=== PATIENT | female | born 1955 | race Caucasian/White ===

== ENCOUNTER → 2016-11-15 | Outpatient (CLI) | payer MEDICARE, OTHER ==
[~2016-11-15] MED LIST: REGADENOSON 0.4 MG/5 ML DISP.SYRIN. IV ONE
--- NOTE | 2016-11-15 10:05 | CARD ---
APPROVED REPORT EXAM: Two-dimensional and M-mode echocardiogram with Doppler and color Doppler. Other Information Quality : Good INDICATION Chest Pain 2D DIMENSIONS RVDd2.3 (2.9-3.5cm)Left Atrium(2D)3.4 (1.6-4.0cm) IVSd1.1 (0.7-1.1cm)Aortic Root(2D)2.4 (2.0-3.7cm) LVDd3.7 (3.9-5.9cm)LVOT Diameter1.7 (1.8-2.4cm) PWd1.2 (0.7-1.1cm)LVDs2.1 (2.5-4.0cm) FS (%) 30.0 %SV42.7 ml LVEF(%)60.0 (>50%) Aortic Valve AoV Peak Qamar.355.1cm/sAoV VTI74.2cm AO Peak GR.50.4mmHgLVOT Peak Qamar.83.8cm/s AO Mean GR.25mmHgAVA (VMAX)0.52cm2 NITIN (VTI)1.17uk1OT P 1/2 [id number] Mitral Valve MV E Hqglymyz70.5cm/sMV DECEL [id number] MV A Kuhbgljs112.9cm/sE/A Ratio0.9 Pulmonary Vein S1 Fozughea01.7cm/sD2 Tnahctot52.3cm/s PVa [id number] LEFT VENTRICLE The left ventricle is normal size. There is mild concentric left ventricular hypertrophy. The left ve ntricular systolic function is normal and the ejection fraction is within normal range. The Ejection Fraction is 55-60%. There is normal LV segmental wall motion. Transmitral Doppler flow pattern is Gra de I-abnormal relaxation pattern. RIGHT VENTRICLE The right ventricle is normal size. The right ventricular systolic function is normal. ATRIA The left atrium size is normal. The right atrium size is normal. The interatrial septum is intact wit h no evidence for an atrial septal defect or patent foramen ovale as noted on 2-D or Doppler imaging. AORTIC VALVE The aortic valve is calcified and displays decreased opening. Doppler and Color Flow revealed mild ao rtic regurgitation. Calculated aortic valve area is 1.0 cm2 with maximum pressure gradient of 50 mmHg and mean pressure gradient of 25 mmHg. Doppler and color-flow analysis revealed moderate aortic sten osis. DI 0.28 MITRAL VALVE The mitral valve is calcified but opens well. Mitral annular calcification is mild. There is no evide nce of mitral valve prolapse. There is no mitral valve stenosis. Doppler and Color-flow revealed trac e mitral regurgitation. TRICUSPID VALVE The tricuspid valve is normal in structure and function. Doppler and Color Flow revealed no tricuspid valve regurgitation noted. There is no tricuspid valve stenosis. PULMONIC VALVE Doppler and Color Flow revealed no pulmonic valvular regurgitation. There is no pulmonic valvular charlene nosis. GREAT VESSELS The aortic root is normal in size. The ascending aorta is normal in size. The IVC is normal in size a nd collapses >50% with inspiration. PERICARDIAL EFFUSION There is no evidence of significant pericardial effusion. Critical Notification Critical Value: No <Conclusion> The left ventricular systolic function is normal and the ejection fraction is within normal range. Th e Ejection Fraction is 55-60%. There is normal LV segmental wall motion. Calculated aortic valve area is 1.0 cm2 with maximum pressure gradient of 50 mmHg and mean pressure g radient of 25 mmHg. Doppler and color-flow analysis revealed moderate aortic stenosis. DI 0.28
--- NOTE | 2016-11-15 12:06 | RAD ---
APPROVED REPORT Test Type: Pharmacological Stress Nurse/Tech: Mana Engle R.N. Test Indications: atypical chest pain w/dyspnea Cardiac History: murmur,cad w/stent,htn Medications: See Electronic Medical Record Medical History: See Electronic Medical Record Resting ECG: SR Resting Heart Rate: 65 bpm Resting Blood Pressure: 134/66mmHg Pretest Chest Pain: No chest pain Nurse/Tech Notes S1S2, murmur, lungs CTA Consent: The procedure was explained to the patient in lay terms. Informed consent was witnessed. Agustín eout was entered into [employer]. History and Stress Test performed by MARTIN Dinh Pharm. Details Pharmacologic stress testing was performed using 0.4mg per 5ml of regadenoson given intravenously ove r 7-10 seconds. Stress Symptoms slight dizziness at first and then chest tightness along lower breast area, scale 3/10 with some soa feeling. this decrease to a 1/10 by the end of recovery time POST EXERCISE Reason for Termination: Infusion complete Target HR: 105 Max Blood Pressure: 147/70mmHg Blood Pressure response to exercise: Normal blood pressure response during stress. Heart Rate response to exercise: wnl Chest Pain: Yes. see above note Arrhythmia: No. ST Change: Yes. minnimal decreases in leads II,III,AVF, V4 INTERPRETATION Stress EKG Conclusion: Abnormal EKG with inferior horizontal ST segment depression at stress. Imaging Protocol IMAGE PROTOCOL: Rest Tc-99m/stress Tc-99m 1 day Rest: Stress: Viability: Radiopharm.Tc99m [id number] Sestamibi Eyhe17eUu 37mCi Duration 15min. 10min. Img Date 11/15/2016 11/15/2016 Inj-Img [id number]. 60min. Rest Admin Site:IV - Left AntecubitalAdministrator:RT Asha (Karla)(N) Stress Admin Site: IV - Left AntecubitalAdministrator: MARTIN Dinh STRESS DATA End Diast. Vol.52.0mlAv. Heart Rate72.0bpm End Syst. Vol.15.0mlCO Index BSA0.0L/min Myocardial Mass98.0gEject. Naxxyrhp00.0% Stress Rates Pk. Fill Rate2.91EDV/secLVtime Pk. Fill 215.00msec Pk. Empty Rate3.89ESV/secLVtime Pk. Pweuq286.76msec 07/27 Pk. Fill0.78EDV/sec Stress Scores Regional WT2.00Summed WT6.00 Regional WM0.00Summed WM10.00 LV Perfusion There is a moderate sized, mild to moderate in intensity, mid to distal anterior/anteroseptal perfusi on defect on stress images that is fully reversible suggestive of impaired perfusion reserve. Wall Motion Normal LV function. EF > 70% LV Perf. Quant 17 Seg. SSS4.00 17 Seg. SRS0.00 17 Seg. SDS4.00 Stress Defect Extent (% LAD)16.90Rest Defect Extent (% LAD)0.00Rev. Defect Extent (% LAD)15.00 Stress Defect Extent (% LCX) 0.00Rest Defect Extent (% LCX)0.00Rev. Defect Extent (% LCX)0.00 Stress Defect Extent (% RCA)0.00Rest Defect Extent (% RCA)0.00Rev. Defect Extent (% RCA)0.00 Stress Defect Extent (% HECTOR)7.00Rest Defect Extent (% HECTOR)0.00Rev. Defect Extent (% HECTOR)6.10 Other Information Quality:Good Risk Assessment: Moderate Risk Conclusion 1. Mildly positive EKG changes with inferior ST segment depression. 2. Mid to distal anterior wall/septal reversible defect. 3. Normal LVEF at 70% 4. Moderate risk study
== END | disposition home or self-care (01) ==
LOC: NM 08:08
PROVIDERS: ATTEND Internal Medicine Cardiovascular Disease
DX: I08.0 Rheumatic disorders of both mitral and aortic valves (principal)
CPT/HCPCS: 78452; 93017; 93306; 96374; 96375; 96376; A9500; J2785

== ENCOUNTER 2017-04-05 06:30 | Inpatient (IN) | payer MEDICARE, OTHER ==
[2017-04-05] VITALS (14 sets, daily range): BP systolic 97–160; BP diastolic 30–79
[~2017-04-05] VITALS: Ht 162.6 cm; Wt 59.1 kg
[2017-04-05] MEDS ORDERED: HEPARIN for ARTERIAL LINE 1,500 ML ONE (07:09)
[2017-04-05] MEDS ORDERED: LIDOCAINE 2% 20 ML VIAL. ONE (07:09)
[2017-04-05] MEDS ORDERED: IODIXANOL 320 MG/ML 100 ML VIAL. ONE ×2 (07:09→09:07)
[2017-04-05] MEDS ORDERED: MAGN400C PO (07:26)
[2017-04-05] MEDS ORDERED: TACR1CAP4 PO (07:26)
[2017-04-05] MEDS ORDERED: MYCO500T PO (07:26)
[2017-04-05] MEDS ORDERED: CHOL10003 PO (07:26)
[2017-04-05] MEDS ORDERED: AMLO5TAB4 PO (07:26)
[2017-04-05] MEDS ORDERED: LOSA50TA2 PO (07:26)
[2017-04-05] MEDS ORDERED: GABA-586 PO (07:26)
[2017-04-05] MEDS ORDERED: OXYC-327 PO (07:26)
[2017-04-05] MEDS ORDERED: CYAN10005 PO (07:26)
[2017-04-05] MEDS ORDERED: TEMA15CA PO (07:26)
[2017-04-05] MEDS ORDERED: LINA145C PO (07:26)
[2017-04-05 07:42] LABS: HEMATOCRIT 38.5 % (36.0-47.0); HEMOGLOBIN 12.6 g/dL (12.0-15.5); RED BLOOD COUNT 4.09 x10^6/uL (3.50-5.40); RED CELL DISTRIBUTION WIDTH 14.2 % (11.5-14.5)
[2017-04-05 07:46] LABS: CALCIUM 9.4 mg/dL (8.5-10.1); GFR 56.4; POTASSIUM 3.9 mmol/L (3.5-5.1)
[2017-04-05] MEDS ORDERED: VERAPAMIL 5 MG/2 ML VIAL. ONE (08:07)
[2017-04-05] MEDS ORDERED: MIDAZOLAM HCL/PF 2 MG/2 ML VIAL. ONE ×2 (08:07→08:35)
[2017-04-05] MEDS ORDERED: HEPARIN for IV BOLUS 10,000 UNIT/10 ML VIAL. ONE (08:07)
[2017-04-05] MEDS ORDERED: fentaNYL PF VIAL 100 MCG/2 ML VIAL ONE ×2 (08:07→08:35)
[2017-04-05 08:08] LABS: PROTHROMBIN TIME PATIENT 12.6 SEC (11.7-14.0)
[2017-04-05] MEDS ORDERED: NITROGLYCERIN 200 MCG/2 ML SYRINGE FOR CATH/VASC LAB. ONE ×2 (08:09→09:44)
[2017-04-05] MEDS ORDERED: NITROGLYCERIN SUBLINGUAL 0.4 MG BOTTLE OF 25. SL ONE (09:06)
[2017-04-05] MEDS ORDERED: NITROGLYCERIN PREMIX 250 ML IV ONE (09:31)
[2017-04-05] MEDS ORDERED: MIDAZOLAM HCL/PF 2 MG/2 ML VIAL. IV ONE (09:45)
[2017-04-05] MEDS ORDERED: VERAPAMIL 5 MG/2 ML VIAL. IART ONE (09:45)
[2017-04-05] MEDS ORDERED: HEPARIN for IV BOLUS 10,000 UNIT/10 ML VIAL. IART ONE (09:45)
[2017-04-05] MEDS ORDERED: NITROGLYCERIN SUBLINGUAL 0.4 MG BOTTLE OF 25. SL PRN (09:45)
[2017-04-05] MEDS ORDERED: fentaNYL PF VIAL 100 MCG/2 ML VIAL IV ONE (09:45)
[2017-04-05] MEDS ORDERED: NITROGLYCERIN 200 MCG/2 ML SYRINGE FOR CATH/VASC LAB. IART ONE ×2 (09:45)
[2017-04-05] MEDS ORDERED: HEPARIN for IV BOLUS 10,000 UNIT/10 ML VIAL. IV ONE (09:45)
[2017-04-05] MEDS ORDERED: IODIXANOL 320 MG/ML 100 ML VIAL. IART ONE (09:45)
[2017-04-05] MEDS ORDERED: LIDOCAINE 2% 20 ML VIAL. IJ ONE (09:45)
[2017-04-05] MEDS ORDERED: CONTRAST GIVEN MC PRN ×2 (10:00)
[2017-04-05] MEDS ORDERED: HEPARIN 25,000UTS/500ML PREMIX 500 ML IV ONE (10:03)
[2017-04-05] MEDS ORDERED: HEPARIN 25,000UTS/500ML PREMIX 500 ML IV PRN ×2 (10:15→12:00)
[2017-04-05] MEDS: NITROGLYCERIN PREMIX 250 ML IV PRN ×2 (10:19→13:20)
--- NOTE | 2017-04-05 11:49 | PDOC2 ---
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 Her anginal episodes have recently become more frequent and intense. She also reports associated shortness of breath. Her coronary angiography today demonstrated a very tight 95 % distal left main disease extending into the LAD and left circumflex bifurcation. The patient has preserved LV function. Of note she was found to have moderate aortic valve stenosis with a valve area of 1 cm and a mean gradient of 25. I was consulted to consider the patient for CABG and AVR Past Medical History Cardiovascular: CAD, HTN, Aortic stenosis Pulmonary: COPD Heme/Onc: Cancer (non-Hodgkin's lymphoma status post chemotherapy) Hepatobiliary: No pertinent hx Psych: No pertinent hx Musculoskeletal: low back pain, Weakness, Other (multiple right lower extremity fractures) Infectious disease: No pertinent hx ENT: No pertinent hx Renal/: Other (kidney transplant) Endocrine: Other (pancreas transplant) Past Surgical History Past Surgical History: Total hip replacement, Total knee replacement (all ORIF right femur, kidney pancreas transplant) Family History Family History: No Significant Social History ALCOHOL: none Drugs: None Lives: with Family Current Medications Current Medications Current Medications Heparin Sodium/ Sodium Chloride 1,500 ml @ As Directed STK-MED ONCE .ROUTE ; Start 04/05/17 at 07:09; Stop 04/05/17 at 07:10; Status DC Lidocaine HCl 20 ml STK-MED ONCE .ROUTE ; Start 04/05/17 at 07:09; Stop at 07:10; Status DC Iodixanol (Visipaque 320) 100 ml STK-MED ONCE .ROUTE ; Start 04/05/17 at 07:09; Stop 04/05/17 at 07:10; Status DC Verapamil HCl (Verapamil) 5 mg STK-MED ONCE .ROUTE ; Start 04/05/17 at 08:07; Stop 04/05/17 at 08:08; Status DC Heparin Sodium (Porcine) (Heparin Sodium) 10,000 unit STK-MED ONCE .ROUTE ; Start 04/05/17 at 08:07; Stop 04/05/17 at 08:08; Status DC Fentanyl Citrate (Fentanyl 2ml Vial) 100 mcg STK-MED ONCE .ROUTE ; Start at 08:07; Stop 04/05/17 at 08:08; Status DC Midazolam HCl (Versed) 2 mg STK-MED ONCE .ROUTE ; Start 04/05/17 at 08:07; Stop 04/05/17 at 08:08; Status DC Nitroglycerin (Nitroglycerin) 200 mcg STK-MED ONCE .ROUTE ; Start 04/05/17 at 08 :09; Stop 04/05/17 at 08:10; Status DC Fentanyl Citrate (Fentanyl 2ml Vial) 100 mcg STK-MED ONCE .ROUTE ; Start at 08:35; Stop 04/05/17 at 08:36; Status DC Midazolam HCl (Versed) 2 mg STK-MED ONCE .ROUTE ; Start 04/05/17 at 08:35; Stop 04/05/17 at 08:36; Status DC Nitroglycerin (Nitrostat) 0.4 mg STK-MED ONCE SL ; Start 04/05/17 at 09:06; Stop 04/05/17 at 09:07; Status DC Iodixanol (Visipaque 320) 100 ml STK-MED ONCE .ROUTE ; Start 04/05/17 at 09:07; Stop 04/05/17 at 09:08; Status DC Dopamine HCl/ Dextrose 250 ml @ As Directed STK-MED ONCE IV ; Start 04/05/17 at 09:13; Stop 04/05/17 at 09:14; Status DC Nitroglycerin/ Dextrose 250 ml @ As Directed STK-MED ONCE IV ; Start 04/05/17 at 09:31; Stop 04/05/17 at 09:32; Status DC Nitroglycerin (Nitroglycerin) 200 mcg STK-MED ONCE .ROUTE ; Start 04/05/17 at 09 :44; Stop 04/05/17 at 09:45; Status DC Nitroglycerin (Nitroglycerin) 200 mcg 1X ONCE IART Last administered on 10:21; Start 04/05/17 at 09:45; Stop 04/05/17 at 09:52; Status DC Verapamil HCl (Verapamil) 2.5 mg 1X ONCE IART Last administered on 04/05/17 10:22; Start 04/05/17 at 09:45; Stop 04/05/17 at 09:52; Status DC Heparin Sodium (Porcine) (Heparin Sodium) 2,500 unit 1X ONCE IART Last administered on 04/05/17 10:23; Start 04/05/17 at 09:45; Stop 04/05/17 at 09:52 ; Status DC Heparin Sodium/ Sodium Chloride 1,000 unit 1X ONCE IART Last administered on 10:20; Start 04/05/17 at 09:45; Stop 04/05/17 at 09:52; Status DC Heparin Sodium/ Sodium Chloride 1,000 unit 1X ONCE IART Last administered on 10:20; Start 04/05/17 at 09:45; Stop 04/05/17 at 09:52; Status DC Midazolam HCl (Versed) 4 mg 1X ONCE IV Last administered on 04/05/17 10:23; Start 04/05/17 at 09:45; Stop 04/05/17 at 09:52; Status DC Fentanyl Citrate (Fentanyl 2ml Vial) 200 mcg 1X ONCE IV Last administered on 10:23; Start 04/05/17 at 09:45; Stop 04/05/17 at 09:53; Status DC Iodixanol (Visipaque 320) 100 ml 1X ONCE IART Last administered on 04/05/17 10:21; Start 04/05/17 at 09:45; Stop 04/05/17 at 09:52; Status DC Heparin Sodium (Porcine) (Heparin Sodium) 4,000 unit 1X ONCE IV Last administered on 04/05/17 10:24; Start 04/05/17 at 09:45; Stop 04/05/17 at 09:52 ; Status DC Lidocaine HCl 20 ml 1X ONCE IJ Last administered on 04/05/17 10:21; Start 07/10 at 09:45; Stop 04/05/17 at 09:52; Status DC Nitroglycerin (Nitrostat) 0.4 mg PRN Q5MIN PRN SL CHEST PAIN Last administered on 04/05/17 10:24; Start 04/05/17 at 09:45; Stop 04/06/17 at 09:44 Nitroglycerin/ Dextrose 250 ml @ 0 mls/hr CONT PRN IV SEE I/O RECORD Last administered on 04/05/17 10:19; Start 04/05/17 at 09:45; Stop 04/06/17 at 09:44 Nitroglycerin (Nitroglycerin) 100 mcg 1X ONCE IART Last administered on 10:22; Start 04/05/17 at 09:45; Stop 04/05/17 at 09:52; Status DC Info (Do NOT chart on this entry -- for MONITORING) 1 each PRN DAILY PRN MC SEE COMMENTS; Start 04/05/17 at 10:00; Stop 04/07/17 at 09:59 Info (Do NOT chart on this entry -- for MONITORING) 1 each PRN DAILY PRN MC SEE COMMENTS; Start 04/05/17 at 10:00; Stop 04/07/17 at 09:59 Heparin Sodium/ Dextrose 500 ml @ As Directed STK-MED ONCE IV ; Start 04/05/17 at 10:03; Stop 04/05/17 at 10:04; Status DC Heparin Sodium/ Dextrose 500 ml @ 0 mls/hr CONT PRN IV SEE I/O RECORD Last administered on 04/05/17 10:19; Start 04/05/17 at 10:15; Stop 04/06/17 at 10:14 Heparin Sodium/ Sodium Chloride 1,000 unit 1X ONCE IV Last administered on 10:20; Start 04/05/17 at 10:15; Stop 04/05/17 at 10:16; Status DC Active Scripts Active Reported Percocet 7.5-325 Mg Tablet (Oxycodone/Acetaminophen) 1 Each Tablet 1 Tab PO PRN Q6HRS PRN Temazepam 15 Mg Capsule 15 Mg PO HS PRN Vitamin D3 (Cholecalciferol (Vitamin D3)) 1,000 Unit Tablet 500 Unit PO DAILY Vitamin B-12 (Cyanocobalamin (Vitamin B-12)) 1,000 Mcg Tablet 500 Mcg PO DAILY Magnesium (Magnesium Oxide) 400 Mg Capsule 1,000 Mg PO DAILY Linzess (Linaclotide) 145 Mcg Capsule 145 Mcg PO Gabapentin 300 Mg Capsule 300 Mg PO TID Cozaar (Losartan Potassium) 50 Mg Tablet 50 Mg PO HS Norvasc (Amlodipine Besylate) 5 Mg Tablet 5 Mg PO HS Prograf (Tacrolimus) 1 Mg Capsule 2 Cap PO BID Cellcept (Mycophenolate Mofetil) 500 Mg Tablet 1 Tab PO BID Allergies Allergies: Coded Allergies: No Known Drug Allergies (Unverified , 11/15/16) ROS General: No: Chills, Night Sweats, Fatigue, Malaise, Appetite PSYCHOLOGICAL ROS: No: Anxiety, Behavioral Disorder, Concentration difficultie , Decreased libido, Depression, Disorientation, Hallucinations, Hostility, Irritablity, Memory difficulties, Mood Swings, Obsessive thoughts, Physical abuse, Sexual abuse, Sleep disturbances, Suicidal ideation Eyes: No Blurry vision, No Decreased vision, No Double vision, No Dry eyes, No Excessive tearing, No Eye Pain, No Itchy Eyes, No Loss of vision, No Photophobia , No Scotomata, No Uses contacts, No Uses glasses HEENT: No: Heacaches, Visual Changes, Hearing change, Nasal congestion, Nasal discharge, Oral lesions, Sinus pain, Sore Throat, Epistaxis, Sneezing, Snoring, Tinnitus, Vertigo, Vocal changes Hematological and Lymphatic: No: Bleeding Problems, Blood Clots, Blood Transfusions, Brusing, Night Sweats, Pallor, Swollen Lymph Nodes ENDOCRINE: No: Breast Changes, Galactorrhea, Hair Pattern Changes, Hot Flashes , Malaise/lethargy, Mood Swings, Palpitations, Polydipsia/polyuria, Skin Changes , Temperature Intolerance, Unexpected Weight Changes Breast: No New/Changing Breast Lumps, No Nipple changes, No Nipple discharge Respiratory: No: Cough, Hemoptysis, Orthopnea, Pleuritic Pain, Shortness of breath, SOB with excertion, Sputum Changes, Stridor, Tachypnea, Wheezing Cardiovascular: No Chest Pain, No Palpitations, No Orthopnea, No Paroxysmal Noc. Dyspnea, No Edema, No Lt Headedness Gastrointestinal: No Nausea, No Vomiting, No Abdominal Pain, No Diarrhea, No Constipation, No Melena, No Hematochezia Genitourinary: No Dysuria, No Frequency, No Incontinence, No Hematuria, No Retention, No Discharge, No Urgency, No Pain, No Flank Pain Musculoskeletal: No Gait Disturbance, No Joint Pain, No Joint Stiffness, No Joint Swelling, No Muscle Pain, No Muscular Weakness, No Pain In:, No Swelling In: Neurological: No Behavorial Changes, No Bowel/Bladder ControlChng, No Confusion , No Dizziness, No Gait Disturbance, No Headaches, No Impaired Coord/balance, No Memory Loss, No Numbness/Tingling, No Seizures, No Speech Problems, No Tremors, No Visual Changes, No Weakness Skin: No Dry Skin, No Eczema, No Hair Changes, No Lumps, No Mole Changes, No Mottling, No Nail Changes, No Pruritus, No Rash, No Skin Lesion Changes, No Acne Physical Exam General: Alert, Oriented X3, No acute distress HEENT: Atraumatic, PERRLA Lungs: Clear to auscultation, Normal air movement Heart: Regular rate, Normal S1, Normal S2, Other (systolic murmur) Abdomen: Soft, No tenderness Extremities: No edema Skin: No significant lesion Neuro: Normal speech, Sensation intact, Cranial nerves 3-12 NL Psych/Mental Status: Mental status NL MUSCULOSKELETAL: Abnormal exam of right (lower extremity) Vitals VITALS Vital Signs Date Time Temp Pulse Resp B/P (MAP) Pulse Ox O2 Delivery O2 Flow Rate FiO2 04/05/17 10:24 107/61 04/05/17 10:23 14 100 Nasal Cannula 4.0 04/05/17 10:22 89 04/05/17 08:17 97.8 97.8 Labs Labs Laboratory Tests Test 04/05/17 07:20 04/05/17 09:35 04/05/17 10:02 White Blood Count 4.0 x10^3/uL (4.0-11.0) Red Blood Count 4.09 x10^6/uL (3.50-5.40) Hemoglobin 12.6 g/dL (12.0-15.5) Hematocrit 38.5 % (36.0-47.0) Mean Corpuscular Volume 94 fL (79-100) Mean Corpuscular Hemoglobin 31 pg (25-35) Mean Corpuscular Hemoglobin Concent 33 g/dL (31-37) Red Cell Distribution Width 14.2 % (11.5-14.5) Platelet Count 246 x10^3/uL (140-400) Prothrombin Time 12.6 SEC (11.7-14.0) Prothromb Time International Ratio 1.0 (0.8-1.1) Activated Partial Thromboplast Time 34 SEC (24-38) Sodium Level 139 mmol/L (136-145) Potassium Level 3.9 mmol/L (3.5-5.1) Chloride Level 102 mmol/L (98-107) Carbon Dioxide Level 30 mmol/L (21-32) Anion Gap 7 (6-14) Blood Urea Nitrogen 14 mg/dL (7-20) Creatinine 1.0 mg/dL (0.6-1.0) Estimated GFR (Cockcroft-Gault) 56.4 Glucose Level 100 mg/dL (70-99) Calcium Level 9.4 mg/dL (8.5-10.1) Activated Clotting Time 225 sec (92-181) 217 sec (92-181) Laboratory Tests Test 04/05/17 07:20 04/05/17 09:35 04/05/17 10:02 White Blood Count 4.0 x10^3/uL (4.0-11.0) Red Blood Count 4.09 x10^6/uL (3.50-5.40) Hemoglobin 12.6 g/dL (12.0-15.5) Hematocrit 38.5 % (36.0-47.0) Mean Corpuscular Volume 94 fL (79-100) Mean Corpuscular Hemoglobin 31 pg (25-35) Mean Corpuscular Hemoglobin Concent 33 g/dL (31-37) Red Cell Distribution Width 14.2 % (11.5-14.5) Platelet Count 246 x10^3/uL (140-400) Prothrombin Time 12.6 SEC (11.7-14.0) Prothromb Time International Ratio 1.0 (0.8-1.1) Activated Partial Thromboplast Time 34 SEC (24-38) Sodium Level 139 mmol/L (136-145) Potassium Level 3.9 mmol/L (3.5-5.1) Chloride Level 102 mmol/L (98-107) Carbon Dioxide Level 30 mmol/L (21-32) Anion Gap 7 (6-14) Blood Urea Nitrogen 14 mg/dL (7-20) Creatinine 1.0 mg/dL (0.6-1.0) Estimated GFR (Cockcroft-Gault) 56.4 Glucose Level 100 mg/dL (70-99) Calcium Level 9.4 mg/dL (8.5-10.1) Activated Clotting Time 225 sec (92-181) 217 sec (92-181) Assessment/Plan Assessment/Plan 62-year-old female with unstable angina who underwent coronary angiography today which demonstrated a very tight 95% distal left main disease extending into the LAD and left circumflex bifurcation. She also has a patent mid RCA stent. The patient has preserved LV function. Of note, she has moderate aortic valve stenosis with a valve area of 1 cm and a mean gradient of 25. In addition to a CABG, the patient would need to have an aortic valve replacement for her moderate aortic stenosis. Overall she would be a very high risk surgical candidate for CABG/AVR, considering that she is nonambulatory and wheelchair bound, blind, on immunosuppressants and with a history of non-Hodgkin 's lymphoma. She would certainly have a complex postoperative recovery. I had a long discussion with the patient and her daughter. I explained the benefits and risks of undergoing CABG/AVR. They would prefer to undergo PCI. I think this would be a very reasonable approach. Would recommend PCI to the distal left main with Impella. Considering that her aortic valve stenosis is moderate, if she undergoes PCI, her aortic stenosis would not have to be addressed at this stage. Down the road, if the aortic stenosis become severe, she can undergo TAVR. RADHIKA HERNANDEZ MD Apr 05, 2017 11:49
[2017-04-05] MEDS ORDERED: fentaNYL PF VIAL 100 MCG/2 ML VIAL IV PRN (12:00)
[2017-04-05] MEDS ORDERED: HEPARIN for IV BOLUS 10,000 UNIT/10 ML VIAL. IV PRN (12:00)
[2017-04-05] MEDS ORDERED: PRASUGREL 10 MG TABLET. PO ONE (12:15)
[2017-04-05] MEDS ORDERED: LINACLOTIDE 145 MCG CAPSULE. PO PRN (12:45)
[2017-04-05] MEDS: fentaNYL PF VIAL 100 MCG/2 ML VIAL IV PRN ×2 (13:17→20:44)
[2017-04-05] MEDS: IV NORMAL SALINE 1000ML BAG 1,000 ML IV SCH ×2 (13:30→21:47)
[2017-04-05] MEDS ORDERED: GABA600T2 PO (13:38)
[2017-04-05] MEDS ORDERED: GABAPENTIN 300 MG CAPSULE. PO SCH (14:00)
[2017-04-05] MEDS: CYCLOBENZAPRINE 10 MG TABLET. PO PRN ×2 (15:25→22:29)
[2017-04-05] MEDS: oxyCODONE/APAP 7.5/325 1 TAB TABLET PO PRN ×2 (15:26→22:28)
[2017-04-05] MEDS: HYDROmorphone 2 MG/ML VIAL IVP PRN ×2 (16:26→19:46)
--- NOTE | 2017-04-05 16:45 | CARD ---
APPROVED REPORT EXAM: Two-dimensional and M-mode echocardiogram with Doppler and color Doppler. Other Information Quality : Fair INDICATION Aortic Valve Disease 2D DIMENSIONS LVOT Diameter2.0 (1.8-2.4cm) Aortic Valve AoV Peak Qamar.336.1cm/sAoV VTI72.3cm AO Peak GR.45.2mmHgLVOT VTI 19.58cm AO Mean GR.30mmHgAVA (VTI)0.80cm2 LEFT VENTRICLE The left ventricle is normal size. There is mild concentric left ventricular hypertrophy. The left ve ntricle is hyperdynamic.EF 70% There is normal LV segmental wall motion. RIGHT VENTRICLE The right ventricle is normal size. The right ventricular systolic function is normal. ATRIA The left atrium is mildly dilated. AORTIC VALVE The aortic valve is not well visualized. Doppler and Color Flow revealed no significant aortic regurg itation. Calculated aortic valve area is 0.8 cm2 with maximum pressure gradient of 45 mmHg and mean p ressure gradient of 30 mmHg. Doppler and color-flow analysis revealed severe aortic stenosis. GREAT VESSELS Not evaluated PERICARDIAL EFFUSION There is no evidence of significant pericardial effusion. Critical Notification Critical Value: No <Conclusion> Calculated aortic valve area is 0.8 cm2 with maximum pressure gradient of 45 mmHg and mean pressure g radient of 30 mmHg. Doppler and color-flow analysis revealed severe aortic stenosis. The left ventricle is hyperdynamic.EF 70% Limited TTE only for LV function and NITIN.
[2017-04-05] MEDS: FAMOTIDINE 20 MG TABLET. PO SCH (17:39)
--- NOTE | 2017-04-05 17:43 | CARD ---
APPROVED REPORT Procedure(s) performed: Sedation Time : 146 min HISTORY The patient is a 62 year-old female with a history of : previous CHF, hypertension, dyslipidemia. INDICATION The indication(s) include : positive stress test, unstable angina , dyspnea. PROCEDURE NARRATIVE After explaining the risks and benefits of the procedure and alternatives, informed consent was obta ined. (See nursing notes for medications administered). The patient was brought electively to the [facility] catheterization lab. A timeout was performed confirming the patient's name, date of , proc edure, and site of procedure. All necessary personnel were wearing the appropriate protective equipm ent and radiation monitor devices. The right wrist was sterilely prepped and draped in the usual fa shion. The right wrist was infiltrated with 1 mL of 2% lidocaine for subcutaneous anesthesia. A 6 F rench Terumo glide sheath was inserted into the right radial artery but there was difficulty due to s pasm and only the distal 1/3 of the sheath was able to be advanced. Right and left coronary angiogra phy was performed using a 6Fr TIG 4.0 catheter, AL2 and JL3.5 catheters. Despite multiple efforts due to small radial artery size and LM angulation, engagement and angiography was difficulty. During tra nsitioning from a radial access to a femoral access the patient experienced transient ST elevation wi th significant chest pain and emergent access was then obtained. Due to suspicion for distal LM disea se, groin access via the RCFA was obtained using the modified seldinger technique. A 6Fr sheath was i nserted. Repeat angigoraphy was then performed with a JL4 catheter. HEMODYNAMICS: Aortic pressure: 126/82 LEFT VENTRICULOGRAM: Not performed due to known normal EF. CORONARY ANGIOGRAPHY: LM is a large caliber vessel with a distal heavily calcified bifurcation lesion upper proximally 95% involving the ostium of the LAD and circumflex LAD is a large caliber vessel with an ostial 90% stenosis and a proximal 60% stenosis with heavy calc ification. The mid to distal vessel is free of significant disease. D1 is a small caliber vessel with normal angiographic apeparance. LCx is a moderate caliber non-dominant vessel with ostial 90% stenosis. The distal vessel is free of significant disease. OM1 is a moderate caliber vessel with normal angiographic appearance. RCA is a large caliber dominant vessel with an ostial/proximal 40% stenosis, a mid patent stent and m ild diffuse irregularities of up to 30%. RPDA and RPL are small caliber vessels with mild diffuse irregularities of up to 30%. Due to the findings of critical distal left main disease and transient ST changes with angina emergen t cardiac surgery consultation was obtained and the patient was started on a heparin drip along with nitroglycerin drip and the ST segments stabilized and the patient symptoms improved. A emergent consu ltation was also obtained with the patient's family with regards to her goals of care and treatment o ptions. Next, a 5 [place] crossover catheter was used to access the left common iliac artery and limit ed angiography was performed to assess patency of the left renal graft as well as size for possible i njured balloon pump placement. Under angiographic and fluoroscopic guidance a 6 [place] sheath was int roduced in the left common femoral artery via the modified Seldinger technique under 2% lidocaine loc al anesthesia. Subsequently this was upsized to an 8 [place] sheath. Next, the right common femoral ar terial sheath was upsized to an 8 [place] sheath and an injured balloon pump was placed through the ri t femoral artery (7.5 [place] 40 mL balloon). The balloon pump counterpulsation was started at 1-1 a nd the patient was stabilized. The patient was transferred to the ICU in stable condition for consideration of cardiac surgery consu ltation. The right radial sheath was removed and a Terumo radial band was applied with 12 mm of air. The bilateral groin sheaths were sutured to the skin. Conclusion 1. Critical distal left main disease with transient ST elevations in the [place]. 2. Successful insertion of a 7.5 [place], 40 mm intra-aortic balloon pump via the right common femoral artery. Recommendations The patient was referred for cardiac surgery consultation. She was evaluated by our cardiac surgery s er and felt to be high risk due to her debilitated state and wheelchair bound situation as well a s high risk for sternal wound infection in light of her immunosuppressive therapy. Her case was also discussed with another cardiac surgeon who concurred the initial assessment of prohibitive risk for c ardiac surgery. A discussion was held with the patient's family and the patient about the risks and b enefits of various approaches including PCI of the left main with a left ventricular assist device as well as high risk bypass surgery in light of her moderate aortic stenosis with valve replacement. Th e patient wishes to have left main stenting performed and after stabilization overnight we will plan for high risk PCI tomorrow. Risks including , stroke, renal failure and bleeding were discussed with the patient. She understands and wishes to proceed.
[2017-04-05] MEDS ORDERED: IV NORMAL SALINE 500ML BAG 500 ML IV ONE ×2 (19:30→20:30)
[2017-04-05 20:12] LABS: CREATININE 1.1 mg/dL (0.6-1.0); GFR 50.5
[2017-04-05] MEDS: TACROLIMUS 1 MG CAPSULE PO SCH (20:51)
[2017-04-05] MEDS: GABAPENTIN 300 MG CAPSULE. PO SCH (20:52)
[2017-04-05] MEDS: MYCOPHENOLATE MOFETIL 250 MG CAPSULE. PO SCH (20:52)
[2017-04-05] MEDS: TEMAZEPAM 15 MG CAPSULE PO PRN (22:28)
[2017-04-06] VITALS (27 sets, daily range): BP systolic 89–166; BP diastolic 34–87
[2017-04-06] MEDS: HYDROmorphone 2 MG/ML VIAL IVP PRN (00:15)
[2017-04-06] MEDS: fentaNYL PF VIAL 100 MCG/2 ML VIAL IV PRN ×2 (00:15→05:52)
[2017-04-06] MEDS: ALPRAZolam 0.25 MG TABLET PO PRN (00:23)
[2017-04-06 05:32] LABS: HEMATOCRIT 26.5 % (36.0-47.0); RED BLOOD COUNT 2.87 x10^6/uL (3.50-5.40); RED CELL DISTRIBUTION WIDTH 13.5 % (11.5-14.5)
--- NOTE | 2017-04-06 05:45 | ACF ---
Admission Forms Criteria INTENSIVE CARE UNIT ADMISSION Intensive Care Admission Guidelines ( [place]/check or initial the applicable condition/criteria) Admission may be indicated when need is demonstrated by 1 or more of the following:(1)(2)(3)(4)(5)(6)(7)(8)(9)(10)(11) I. Vital sign abnormalities, including 1 or more of the following: a) Systolic arterial pressure less than 90 mm Hg, or 20 mm Hg below patient's usual pressure in adult or child 10 years or older b) Systolic arterial blood pressure less than 70 mm Hg in infant (1 month to 1 year of age), or less than the sum of 70 mm Hg plus twice the patient's age in child 2 to 10 years of age(12) c) Diastolic arterial pressure greater than 120 mm Hg d) Mean arterial pressure less than 70 mm Hg in adult[A] e) Mean arterial pressure less than the sum of 40 mm Hg plus 1.5 times patient' s age in child or adolescent[A](12) f) Pulse less than 40 or greater than 140 beats per minute in adult, or in adolescent 16 years or older g) Pulse less than 90 or greater than 160 beats per minute in infant younger than 1 year(7) h) Pulse less than 70 or greater than 150 beats per minute in child 1 to 15 years of age(7) i) Respiratory rate greater than 35 or less than 8 breaths per minute in adult II. Laboratory findings (new), including 1 or more of the following(13)(14)(15)( 16)(17)(18)(19)(20): a) Saturation of arterial oxygen less than 90% or partial pressure of oxygen less than 60 mm Hg (8.0 kPa) despite oxygen supplementation b) Rising partial pressure of carbon dioxide with acute or uncompensated respiratory acidosis c) Arterial pH less than 7.2 or greater than 7.65 d) Serum sodium less than 110 mEq/L (mmol/L) or greater than 160 mEq/L (mmol/L) e) Serum sodium less than 125 mEq/L (mmol/L) with Altered mental status, seizure , or respiratory arrest f) Serum sodium more than 145 mEq/L (mmol/L) with Altered mental status, seizure , or severe dehydration requiring large volume fluid resuscitation g) Serum potassium less than 2 mEq/L (mmol/L) or greater than 7 mEq/L (mmol/L) h) Serum potassium less than 2.5 mEq/L (mmol/L) with severe clinical or electrocardiogram manifestations (eg, paralysis, cardiac arrhythmia, delayed depolarization, flat T waves, or U waves) i) Serum potassium greater than 6 mEq/L (mmol/L) with electrocardiogram changes of hyperkalemia (eg, peaked T waves, widened QRS, cardiac arrhythmia) j) Serum calcium greater than 14 mg/dL (3.5 mmol/L)(19) k) Serum calcium greater than 12 mg/dL (3.0 mmol/L) with Altered mental status, severe volume depletion requiring large volume IV fluid resuscitation, Hypotension, significant arrhythmia, heart block, or digitalis toxicity(19) l) Serum phosphorus less than 1 mg/dL (0.32 mmol/L) m) Toxic drug level or poisoning causing or likely to cause neurologic abnormalities or Hemodynamic instability n) Less severe laboratory abnormalities contributing to 1 or more of the following: i. Seizure ii. Altered mental status iii. Muscle weakness or severe spasms iv. Arrhythmias v. Hemodynamic instability vi. Other significant clinical manifestations III. Electrocardiogram (or cardiac monitoring) findings, including 1 or more of the following: a) Inherently unstable or life-threatening arrhythmia (eg, sustained ventricular tachycardia, ventricular fibrillation, asystole) b) Arrhythmia causing Hypotension (eg, Bradycardia, Tachycardia ) c) Complete heart block causing Hypotension d) Other findings indicative of need for intensive care (eg, acute cardiac ischemia, myocardial infarction) IV. Physical findings, including 1 or more of the following: a) Threatened airway b) Altered mental status that is severe or persistent c) Repeated or prolonged seizures d) New-onset anuria (urine output less than 0.1 mL/kg/hour over 4 hours) e) Cyanosis (new) f) Cardiac tamponade g) Status post respiratory or cardiac arrest h) Severe frias (eg, partial thickness frias over more than 10% of body surface , third-degree frias) i) Findings consistent with abdominal emergency (eg, peritoneal signs) V. Imaging findings, such as dissecting aneurysm or ruptured viscus . Specific intervention or monitoring needed, as indicated by 1 or more of the following: a) New need for assisted ventilation, invasive or noninvasive(20) b) New need for intubation (eg, to protect airway) c) New tracheostomy (less than 48 hours old) d) Hourly vital signs or neurologic checks e) Pulmonary artery line monitoring needed f) Continuous arterial line monitoring needed g) Continuous IV vasoactive drugs h) Continuous IV antiarrhythmics i) Large volume IV fluid resuscitation (eg, greater than 6 L per day) j) Large or rapid transfusion needs (eg, more than 6 units within 24 hours) k) High-risk IV treatment, such as thrombolysis, hypertonic saline, or mannitol infusion l) Rapid desensitization for high-risk hypersensitivity reaction to required medication (eg, penicillin)(21)(22) m) Acute cardiac pacing n) Intra-aortic balloon pump o) Ventricular assist device p) Extracorporeal membrane oxygenation device q) Pericardiocentesis r) Hemodialysis in unstable patient s) Continuous renal replacement therapy (eg, continuous venovenous hemodialysis ) t) Continuous fluid removal via hemofiltration (eg, continuous venovenous hemofiltration) u) Peritoneal dialysis initiation v) Emergency bronchoscopic therapy (eg, for hemoptysis) w) Emergency endoscopic therapy for bleeding x) Balloon tamponade for variceal bleeding y) Intracranial pressure monitoring or tissue oxygen monitoring z) Ventriculostomy monitoring aa) Treatment of ongoing seizures bb) Induced hypothermia or coma cc) Ongoing frequent testing and treatment for acute conditions, including 1 or more of the following: i. Correction of severe metabolic acidosis or alkalosis ii. Frequent glucose checks (ie, more frequent than performable at lower level of care) iii. Severe fluid overload iv. Cerebral edema v. Monitoring or suctioning for respiratory insufficiency or acidosis vi. Monitoring for active bleeding dd) Other need for treatment or monitoring not available outside the ICU VII. Systemic conditions, including 1 or more of the following: a) Severe electrolyte or metabolic disturbance causing or likely to cause 1 or more of the following(13)(16)(17)(18)(19): i. Life-threatening cardiac dysrhythmia ii. Respiratory insufficiency iii. Altered mental status iv. Seizures v. Hemodynamic instability vi. Muscular weakness b) Environmental injuries such as Hypothermia, hyperthermia, electrical injuries , or near drowning(27)(28)(29)(30)(31) c) Anaphylaxis with respiratory compromise, Hypotension, or other end organ dysfunction(32)(33) d) Confirmed or suspected malignant hyperthermia as evidenced by exposure to volatile anesthetic agent or succinylcholine and 1 or more of the following(27)(34): i. Hypermetabolism as evidenced by inappropriately increased CO2 production, O2 consumption, or acute mixed metabolic and respiratory acidosis ii. Unexplained Tachycardia iii. Cardiac tachyarrhythmias, ectopic ventricular beats or ventricular bigemini iv. [place] spasm v. Muscle rigidity vi. Rapid increase in core body temperature vii. Acute rise in serum potassium, creatine kinase, or myoglobin e) Neuroleptic malignant syndrome as evidenced by exposure to neuroleptic drug ( eg, phenothiazine, butyrophenone) or dopamine depleting drug (eg, alpha-methyltyrosine),or withdrawal of dopaminergic agent (eg, L-dopa, amantadine) and 1 or more of the following(27)(34): i. Muscle rigidity ii. Hyperthermia iii. Altered mental status iv. Hemodynamic instability v. Acute rise in creatine kinase f) Serotonin syndrome (serotonin toxicity) as evidenced by exposure to medication(s) that increases level of serotonin in MI[employer]CHIT[employer] DEVELOPER (eg, some antidepressants, opioids, stimulants, triptans) and 1 or more of the following: i. Significant neurologic finding (eg, agitation, hypomania, hallucinations, Altered mental status ) ii. Significant autonomic nervous system-related finding (eg, sweating, hyperthermia, tachycardia, vomiting) iii. Significant musculoskeletal findings (eg, myoclonus, hyperreflexia, tremor) g) Severe alcohol withdrawal with 1 or more of the following(36)(37)(38): i. Hemodynamic instability ii. Cardiac arrhythmias of immediate concern iii. Uncontrolled seizures iv. Respiratory depression with need for, or high likelihood of requiring, mechanical ventilation v. Need for anesthetic agent to control agitation (eg, dexmedetomidine, propofol ) vi. Delirium tremens as evidenced by ALL of the following: a) Cessation of, or reduction in, heavy and prolonged alcohol use b) Delirium c) 2 or more of the following symptoms: i. Autonomic hyperactivity ii. Tremor iii. Nausea or vomiting iv. Hallucinations v. Increased anxiety vi. Psychomotor agitation vii. Generalized tonic-clonic seizures VIII. Cardiology diagnoses or procedures, including 1 or more of the following( 39)(40)(41)(42)(43): a) Chest pain with 1 or more of the following: i. Hemodynamic instability ii. Suspicion of diagnoses needing ICU care (eg, aortic dissection) iii. New unstable or symptomatic arrhythmia or ECG finding (eg, ventricular tachycardia, ventricular fibrillation, advanced heart block) iv. Syncope or near-syncope v. Pulmonary edema thought to be due to ischemia vi. New or worsening mitral regurgitation murmur, S3, or rales b) Acute OR or unstable angina with complications as indicated by 1 or more of the following: i. Persistent chest pain ii. Hemodynamic instability iii. New unstable or symptomatic arrhythmia or ECG finding (eg, ventricular tachycardia, ventricular fibrillation, advanced heart block) iv. Syncope or near-syncope v. Pulmonary edema thought to be due to ischemia vi. New or worsening mitral regurgitation murmur, S3, or rales vii. New-onset bundle branch block viii.Hemorrhagic complication (eg, intracranial or access site bleed following thrombolysis) c) Complication of cardiac ablation, indicated by 1 or more of the following(45) (46): i. Pericardial tamponade ii. Hemodynamic instability iii. Thromboembolic stroke iv. Aortic or mitral valve injury v. Vascular injuries vi. Esophageal perforation vii. Severe arrhythmia viii. Air embolism ix. Other severe complication d) Ablation with need for post-procedure invasive hemodynamic monitoring(45) e) Hemodynamic instability due to cardiac cause (eg, valve disease, arrhythmia, ischemia, conduction abnormality) (47)(48)(49) f) Hypertensive emergency, with need for 1 or more of the following(38)(39): i. IV antihypertensive therapy ii. Invasive hemodynamic monitoring (eg, arterial line) g) Infective endocarditis with 1 or more of the following(50)(51): i. Hemodynamic instability ii. Valvular dysfunction with congestive heart failure iii. Need for inotropic agent iv. Severe arrhythmia v. Intracranial mycotic aneurysm vi. Hemorrhagic stroke vii. Altered mental status that is severe or persistent viii. Acute respiratory failure ix. Requirement for frequent hemodynamic measurements x. Acute renal failure xi. Acute ischemic end organ damage (eg, small bowel infarction) xii. Need for acute surgical valve repair or replacement xiii. Severe pulmonary edema (eg, severe mitral regurgitation) h) Pericardial tamponade i) Severe heart failure, indicated by 1 or more of the following(40): i. Hemodynamic instability ii. Respiratory failure iii. Severe arrhythmias iv. Evidence of cardiac ischemia j) Myocarditis, with 1 or more of the following(52)(53)(54)(55): i. Hemodynamic instability ii. Respiratory failure iii. Severe arrhythmias iv. Need for cardiac assist device (eg, left ventricular assist device or extracorporeal membrane oxygenator) k) Status post cardiac arrest(56) [X] IX. Cardiovascular Surgery diagnoses or procedures, including 1 or more of the following (57)(58)(59): a) Acute aortic dissection b) Aortic surgery for 1 or more of the following: i. Thoracic aneurysm ii. Abdominal aneurysm with 1 or more of the following (60): A. Emergency repair B. Severe cardiopulmonary disease C. Dialysis-dependent renal failure D. Need for IV blood pressure control E. Need for ongoing ventilatory support F. Abdominal compartment syndrome G. Perioperative complications, including 1 or more of the followin. Hemodynamic instability 2. Cardiac ischemia or arrhythmia 3. Hypothermia 4. Blood transfusion greater than 3 L 5. Acute lower extremity ischemia 6. Ischemic colitis iii. Aortic coarctation operative excision or repair iv. Aortofemoral or aortoiliac bypass with 1 or more of the following: A. Continued intubation and mechanical ventilation B. Hemodynamic instability C. Need for IV blood pressure control D. Severe cardiopulmonary disease [X] c) Cardiac surgery (eg, CABG, valve replacement) d) Carotid endarterectomy or stent placement with 1 or more of the following: i. Blood pressure less than 100/60 mm Hg or greater than 160/90 mm Hg despite 4 hours of postanesthetic management ii. Need for IV blood pressure control iii. New or progressive neurologic defect iv. Chest pain v. Continued intubation vi. Heart failure vii. Airway compromise by hematoma or vocal cord paralysis e) Heart transplant f) Infrainguinal peripheral vascular surgery with 1 or more of the following: i. Hemodynamic instability ii. Acute complications such as persistent chest pain or respiratory distress iii. Requirement for IV antiarrhythmic or vasoactive agent iv. Requirement for pulmonary artery catheter v. Severe hypertension despite 6 hours of recovery room management g) Complications of any cardiovascular surgery requiring ICU intervention as indicated by 1 or more of the following(61) i. Hemodynamic instability ii. OR with complications (eg, severe arrhythmia, hypotension) iii. Excessive bleeding or severe coagulopathy iv. Respiratory failure v. Renal failure vi. Airway instability or obstruction vii. Neurologic deterioration viii. Infection with likelihood of sepsis syndrome or significant fluid shifts X. Endocrinology diagnoses or procedures, including 1 or more of the following: a) Adrenal crisis with Hemodynamic instability(18)(62)(63) b) Pheochromocytoma with 1 or more of the following(62): i. Hypertensive crisis ii. Postoperative for 24 hours after resection of pheochromocytoma iii. Postoperative Hemodynamic instability iv. Need for IV vasoactive therapy v. Need for invasive arterial or central venous pressure monitoring vi. Organ ischemia c) Diabetic hyperosmolar state with Altered mental status that is severe or persistent(64) d) Diabetic ketoacidosis with 1 or more of the following (64)(65)(66)(67): i. Serum pH less than 7.10 or bicarbonate level less than 10 mEq/L (mmol/L) ii. Rapidly changing electrolytes iii. Significant hypokalemia (eg.ECG changes) iv. Hypotension v. Requirement for large-volume fluid resuscitation vi. Requirement for intravenous insulin administration vii. Requirement for nursing care (eg, glucose checks) beyond capabilities of lower levels of care. viii. Respiratory insufficiency ix. Life-threatening cardiac dysrhythmias x. Altered mental status that is severe or persistent xi. Severe precipitating condition such as sepsis, stroke, or acute OR xii. Child at increased risk of cerebral edema (eg, age younger than 5 years, high BUN) xiii. Child with clinical signs of cerebral edema (eg, headache, Altered mental status, cranial nerve palsy, papilledema, rising blood pressure with slowing heart rate) e) Severe hypoglycemia requiring continuous glucose infusion with frequent adjustment (eg, in response to glucose checks) or glucagon administration (18) f) Hyperthyroidism associated with thyroid storm (also known as thyrotoxic crisis)(18)(68) g) Myxedema with severe precipitating factor (eg, sepsis, myocardial infarction , stroke), or life-threatening neurologic, pulmonary, cardiovascular, electrolyte, or renal sequelae(69) h) Diabetes insipidus that cannot be controlled rapidly (eg, with medication) ( 70) XI. Gastroenterology diagnoses or procedures, including 1 or more of the following;(71) a) Acute diverticulitis with 1 or more of the following(72)(73): i. Active GI bleeding (eg, transfusion requirement greater than 2 units of packed red cells, known coagulopathy) ii. Hemodynamic instability iii. Vital sign abnormality due to infection (eg, peritonitis) b) Esophageal or gastric perforation(74) c) Severe caustic esophageal or gastric injury(75)(76) d) Liver disease complications with 1 or more of the following(77)(78)(79)(80): i. Severe hepatic encephalopathy (eg, stage 3 (somnolent) or higher) ii. Type 1 hepatorenal syndrome iii. Other cirrhosis-associated causes of renal failure (eg, severe hypovolemia , acute tubular necrosis, abdominal compartment syndrome) iv. Hemodynamic instability v. Respiratory insufficiency due to severe ascites vi. Severe electrolyte abnormalities vii. Vital sign abnormality due to infection (eg, bacterial peritonitis) e) Fulminant hepatic failure when aggressive intervention or transplant is anticipated(81) f) Gallbladder or bile duct inflammation (eg, cholangitis or cholecystitis) with 1 or more of the following(82): i. Hemodynamic instability ii. End organ failure (eg, worsening renal function) g) Gastrointestinal hemorrhage (upper or lower) with 1 or more of the following( 72)(83)(84): i. Active ongoing bleeding ii. Transfusion requirement greater than 2 units of packed red cells iii. Bleeding ulcer, visible blood vessel, bleeding (or recently bleeding) esophageal varices seen on endoscopy iv. Hypotension v. Syncope vi. Coagulopathy vii. Hepatic cirrhosis viii. Altered mental status ix. Unstable comorbid condition or end organ dysfunction x. Ischemia due to poor perfusion xi. Need for invasive (eg, pulmonary-artery catheter) hemodynamic monitoring (eg , for patients with severe heart failure or valvular disease) xii. Excessive hematemesis requiring intubation for airway protection h) Severe pancreatitis indicated by 1 or more of the following(85)(86)(87): i. Requirement for aggressive fluid resuscitation ii. Severe electrolyte abnormality iii. Hypotension iv. Persistent tachycardia greater than 120 beats per minute v. Patient at high risk of rapid deterioration, including 1 or more of the following: A. Calculated [place] II score greater than 8 B. Age older than 55 years C. BMI greater than 30 D. Greater than 30% pancreatic necrosis on CT scan E. Admission hematocrit greater than 47% (0.47) vi. Organ failure as indicated by 1 or more of the following: A. Serum creatinine greater than 1.9 mg/dL (168 micromoles/L) B. Urine output less than 50 mL/hour C. Requirement for mechanical ventilation D. Arterial partial pressure of oxygen less than 60 mm Hg (8.0 kPa) despite supplemental oxygen E. PiO2/FiO2 ratio less than 300 vii. Expanding pseudocyst viii. Infected pancreas ix. Need for pain control (eg, IV opioids) not performable at lower level of care x. Pleural effusion xi. Encephalopathy xii. Severe active comorbidities (eg, liver disease) XII. General Surgery diagnoses or procedures, including 1 or more of the following(8)(61)(88): a) Acute abdominal catastrophe (eg, ischemic bowel, perforated viscus, abdominal compartment syndrome) b) Complications of any surgery requiring ICU intervention as indicated by 1 or more of the following: i. Hemodynamic instability ii. OR with complications (eg, severe arrhythmia, Hypotension ) iii. Excessive bleeding or severe coagulopathy iv. Respiratory failure or insufficiency v. Renal failure vi. Airway instability or obstruction vii. Neurologic deterioration viii. Infection with Hypotension or significant fluid shifts c) Multiple trauma with complicating features as indicated by 1 or more of the following(89)(90): i. Serious injury involving more than one organ or system ii. Single organ injury requiring critical care intervention or monitoring (eg, invasive hemodynamic monitoring, frequent vital signs or neurologic checks) iii. Impending acute respiratory failure due to lung contusion, unstable chest wall, aspiration, hemorrhage, tension or open pneumothorax, or fat embolism iv. Facial or neck injury threatening airway patency v. Cardiac contusion vi. Pericardial effusion vii. Bronchial tear viii. Hemodynamic instability ix. Rhabdomyolysis requiring large volume IV fluid resuscitation x. Other significant complicating feature d) Organ transplant(91)(92)(93) e) Esophagectomy(71) f) Pancreatectomy (eg, Whipple procedure) g) Preoperative or postoperative patients requiring ICU intervention, such as hemodynamic optimization, pulmonary artery monitoring, mechanical ventilation, or extensive nursing care h) Obesity surgery patient with 1 or more of the following(94): i. ICU management needs for comorbid conditions (eg, airway issues due to severe sleep apnea) ii. Failed postoperative extubation iii. Intraoperative complications (eg, perforated viscus, bleeding) XIII. Head and Neck Surgery diagnoses or procedures, including 1 or more of the following (95)(96): a) Complications of any surgery requiring ICU intervention as indicated by 1 or more of the following: i. Hemodynamic instability ii. OR with complications (eg, severe arrhythmia, Hypotension ) iii. Excessive bleeding or severe coagulopathy iv. Respiratory failure or insufficiency v. Renal failure vi. Airway instability or obstruction vii. Neurologic deterioration viii. Infection with likelihood of sepsis syndrome or significant fluid shifts b) Preoperative or postoperative patient requiring ICU intervention, such as pulmonary artery monitoring, mechanical ventilation, or extensive nursing care c) Life-threatening infection of head and neck, including 1 or more of the following(81)(82)(83): i. Preston's angina (submandibular and lingual cellulitis) ii. Lateral or posterior pharyngeal space infection iii. Peritonsillar abscess iv. Lemierre syndrome (Fusobacterium oropharyngeal infection complicated by jugular vein septic thrombophlebitis) v. Acute epiglottitis vi. Other upper airway infection causing or threatening airway compromise d) Airway or hemodynamic compromise that persists after 3 hours of observation in postanesthesia care unit following nasal, palate (eg, uvulopalatopharyngoplasty or palatoplasty), or tongue surgery for sleep apnea e) Symptomatic upper airway compromise (eg, laryngeal edema, mass) f) Other airway-compromising procedure (eg, posterior nasal packing) XIV. Hematology - Oncology diagnoses or procedures, including chemotherapy administration, with 1 or more of the following(100)(101)(102)(103): a) Hemodynamic instability b) Severe sickle cell crisis indicated by 1 or more of the following(104): i. Hemodynamic instability ii. Evidence of MICRO[employer] ARCHIT[employer] DEVELOPER injury (eg, stroke) iii. Altered mental status that is severe or persistent iv. Respiratory distress v. End organ ischemia (eg. intestinal) or failure (eg. renal) vi. Need for treatment (eg, pain control with IV opioids) or monitoring (eg, for renal failure, aplastic crisis) not performable at lower level of care c) Hyperleukocytosis (white blood cell count greater than 100,000/mm3 (100 x109/ L)) and 1 or more of the following: i. Respiratory manifestations (eg, dyspnea, Hypoxemia, acute respiratory distress syndrome) ii. Neurologic manifestations (eg, focal deficit, Altered mental status, seizure ) iii. Cardiac ischemia iv. Other end organ dysfunction (eg, acute kidney injury, visual disturbances) d) Superior vena cava or superior mediastinal syndrome and 1 or more of the following: i. Hemodynamic instability ii. Respiratory symptoms (eg, dyspnea, Tachypnea ) iii. Hypotension iv. Known or suspected pericardial effusion v. Known or suspected airway compromise e) Thrombotic microangiopathy syndrome (eg, thrombotic thrombocytopenic purpura , hemolytic uremic syndrome) and 1 or more of the following (105)(106): i. Acute kidney injury indicated by 1 or more of the following: A. 2-fold rise in serum creatinine from baseline B. Reduction of more than 50% in estimated glomerular filtration rate from baseline C. Urine output less than 0.5 mL/kg/hour for 12 hours despite adequate volume status ii. Altered mental status iii. Seizure iv. Active blood loss v. Other end organ dysfunction (eg, acute respiratory distress syndrome, cardiac ischemia) f) Tumor lysis syndrome with 1 or more of the following: i. Acute kidney injury indicated by 1 or more of the following: A. 2-fold rise in serum creatinine from baseline B. Reduction of more than 50% in estimated glomerular filtration rate from baseline C. Urine output less than 0.5 mL/kg/hour for 12 hours despite adequate volume status ii. Severe electrolyte abnormality iii. Cardiac dysrhythmia iv. Seizure XV. Infectious Disease diagnosis, with 1 or more of the following(1)(5(6))(107)( 108): a) Hemodynamic instability b) Requirement for frequent hemodynamic measurements (eg, arterial catheter, pulmonary artery catheter) c) End organ dysfunction (eg, acute kidney injury, acute respiratory distress syndrome) d) Necrotizing soft tissue infection(109) XVI. Nephrology diagnoses or procedures, including acute or acute on chronic renal insufficiency, with 1 or more of the following(110)(111)(112)(113): a) Severe electrolyte or acid-base disorder b) Acute pulmonary edema c) Hypotension d) Hypertensive emergency (eg, encephalopathy, myocardial ischemia) e) Severe hypertension with need for IV vasodilator (eg, nitroprusside) or arterial catheter for blood pressure monitoring f) Underlying critical illness contributing to renal failure (eg, septic shock, hepatorenal syndrome) g) Need for continuous renal replacement therapy h) Pyelonephritis with Hemodynamic instability (5)(107) XVII. Neurology diagnoses or procedures, including 1 or more of the following( 115)(116)(117): a) Intracranial hypertension requiring 1 or more of the following(118): i. Induced barbiturate coma ii. Pharmacologic paralysis or deep sedation and mechanical ventilation iii. Intracranial pressure or cerebral perfusion pressure monitoring iv. IV mannitol or hypertonic saline v. Frequent serum osmolality measurements b) Seizures with 1 or more of the following(119)(120): i. Status epilepticus ii. Severe electrolyte abnormalities causing seizures iii. Airway compromise requiring or likely to require mechanical ventilation c) Progressive acute neurologic dysfunction requiring or likely to require 1 or more of the following: i. Mechanical ventilation ii. Intracranial pressure or cerebral perfusion pressure monitoring d) MI[employer]CH[employer]ELOPER infection (eg, meningitis, encephalitis) 1 or more of the following[C]( 121)(122)(123)(124): i. Hemodynamic instability ii. Altered mental status that is severe or persistent iii. Respiratory insufficiency iv. Elevated intracranial pressure v. Refractory seizures e) Stroke with 1 or more of the following(125)(126)(127)(128): i. Need for observation after thrombolysis ii. Altered mental status iii. Need for mechanical ventilation iv. Elevated intracranial pressure v. Hypertensive emergency vi. High risk of progressive infarction or deterioration based on CT scan or MRI vii. Hemorrhage f) Acute coma g) Acute spinal cord compression (eg, epidural abscess, hematoma, tumor) h) Acute spontaneous intracranial hemorrhage(127)(129)(130) i) Traumatic brain injury with 1 or more of the following(117)(131)(132): i. Altered mental status that is severe or persistent ii. Cerebral edema iii. Cerebral hemorrhage iv. Increased intracranial pressure j) Drug ingestion or toxic exposure with 1 or more of the following(133)(134)( 135): i. Hemodynamic instability ii. Respiratory depression (eg, new partial pressure of carbon dioxide greater than 45 mm Hg (6.0 kPa)) iii. Patient requires or is likely to require mechanical ventilation. iv. Arrhythmia v. Seizures vi. Altered mental status that is severe or persistent vii. Significant risk for acute deterioration (eg, toxic drug level) viii. Drug-induced Hypothermia or hyperthermia(27) ix. Significant or worsening metabolic acidosis x. Severe hypoglycemia requiring glucose infusion with frequent adjustment or glucagon administration xi. Ongoing antidote administration (eg, continuous naloxone infusion, organophosphate toxicity treatment) xii. Emergency intervention need (eg, dialysis, hemoperfusion, restraints) k) Brain with preparation for organ donation XVIII. Neurosurgery diagnoses or procedures, including 1 or more of the following(118)(136)(137): a) Emergency craniotomy for tumor, hematoma, or trauma b) Elective craniotomy for posterior fossa tumor c) Elective craniotomy (supratentorial) for tumor with 1 or more of the following(138): i. Postoperative neurologic deficit or impaired consciousness 6 hours after completion of procedure ii. Systolic blood pressure less than 110 mm Hg or greater than 180 mm Hg despite therapy iii. Extensive operative blood loss iv. High anesthesia risk (eg, [place] [employer] score greater than 3). See [place] [employer]esthesiologists (ASA) Physical Status Classification System. d) Craniotomy for aneurysm with 1 or more of the following: i. Postoperative neurologic deficit or impaired consciousness 6 hours after completion of procedure ii. Preoperative Sepulveda-Wells grade 3 or higher iii. Systolic blood pressure less than 110 mm Hg or greater than 180 mm Hg despite therapy iv. Intracranial pressure monitoring e) Acute spinal cord injury f) Subarachnoid hemorrhage(127) g) Traumatic brain injury with 1 or more of the following(131)(139): i. Altered mental status that is severe or persistent ii. CT scan showing cerebral edema or hemorrhage iii. Intracranial pressure monitoring h) Complications of surgery requiring ICU intervention as indicated by 1 or more of the following(140): i. Hemodynamic instability ii. OR with complications (eg, severe arrhythmia, Hypotension ) iii. Excessive bleeding or severe coagulopathy iv. Respiratory failure or insufficiency v. Renal failure vi. Airway instability or obstruction vii. Neurologic deterioration viii. Infection with Vital sign abnormality i) Preoperative or postoperative patient requiring ICU intervention, such as pulmonary artery monitoring, mechanical ventilation, or extensive nursing care XIX. Obstetrics andGynecology diagnoses or procedures, including 1 or more of the following (141)(142)(143)(144)(145): a) Severe peripartum condition as indicated by 1 or more of the following: i. Eclampsia ii. Hypertensive emergency iii. HELLP (hemolysis, elevated liver enzymes, and low platelet count) syndrome iv. Pulmonary edema (eg, due to cardiomyopathy) v. Severe arrhythmia vi. Respiratory failure vii. Pulmonary embolism viii. Anaphylactoid syndrome of (amniotic fluid embolus) ix. Ovarian hyperstimulation syndrome[C] x. Acute fatty liver of (hepatic failure) xi. Vital sign abnormality due to infection (eg, puerperal sepsis, chorioamnionitis, septic , pneumonia) xii. Complications such as placental abruption or severe hemorrhage xiii. Severe cardiac complication such as coronary or aortic dissection, or acute coronary syndrome b) Ruptured ectopic c) Complications of any surgery requiring ICU intervention as indicated by 1 or more of the following: i. Hemodynamic instability ii. OR with complications (eg, severe arrhythmia, Hypotension ) iii. Excessive bleeding or severe coagulopathy iv. Respiratory failure or insufficiency v. Renal failure vi. Airway instability or obstruction vii. Neurologic deterioration viii. Infection with Vital sign abnormality d) Preoperative or postoperative patient requiring ICU intervention, such as pulmonary artery monitoring, mechanical ventilation, or extensive nursing care XX. Ophthalmology diagnoses or procedures, including 1 or more of the following( 146): a) Complications of any surgery requiring ICU intervention, such as 1 or more of the following: i. Hemodynamic instability ii. OR with complications (eg, severe arrhythmia, Hypotension ) iii. Excessive bleeding or severe coagulopathy iv. Respiratory failure or insufficiency v. Renal failure vi. Airway instability or obstruction vii. Neurologic deterioration viii. Infection with Vital sign abnormality b) Preoperative or postoperative patient requiring ICU intervention, such as pulmonary artery monitoring, mechanical ventilation, or extensive nursing care XXI. Orthopedics diagnoses or procedures, including 1 or more of the following (147)(148): a) Complications of any surgery requiring ICU intervention as indicated by 1 or more of the following: i. Hemodynamic instability ii. OR with complications (eg, severe arrhythmia, Hypotension ) iii. Excessive bleeding or severe coagulopathy iv. Respiratory failure or insufficiency v. Renal failure vi. Airway instability or obstruction vii. Neurologic deterioration viii. Infection with Vital sign abnormality b) Multiple trauma with complicating features as indicated by 1 or more of the following(89)(90(149): i. Serious injury involving more than one organ or system ii. Single organ injury requiring critical care intervention or monitoring (eg, invasive hemodynamic monitoring, frequent vital signs or neurologic checks) iii. Impending acute respiratory failure due to lung contusion, unstable chest wall, aspiration, hemorrhage, tension or open pneumothorax, or fat embolism iv. Facial or neck injury threatening airway patency v. Cardiac contusion vi. Rhabdomyolysis requiring large volume IV fluid resuscitation vii. Pericardial effusion viii. Bronchial tear ix. Hemodynamic instability x. Other significant complicating feature c) Compartment syndrome diagnosed, suspected, or threatened(150) d) Severe frias with 1 or more of the following(151)(152)(153): i. Hypotension or requirement for aggressive fluid resuscitation ii. Respiratory insufficiency with requirement for high-flow oxygen or mechanical ventilation iii. Carbon monoxide poisoning iv. Life-threatening cardiac, renal, pulmonary, or neurologic dysfunction v. High-voltage (eg, 1000 volts or more) electrical burn vi. Chemical burn vii. Requirement for frequent or intensive debridement and dressing changes; examples include: A. Partial-thickness frias greater than 10% of body surface B. Frias on face, hands, feet, genitalia, perineum, or major joints C. Third-degree frias D. Any burn greater than 15% of body surface area viii. Inhalation lung injury ix. Severe infection x. Concomitant trauma or other medical condition requiring ICU care e) Preoperative or postoperative patient requiring ICU intervention, such as pulmonary artery monitoring, mechanical ventilation, or extensive nursing care XXII. Thoracic Surgery and Pulmonary Disease diagnoses or procedures, including 1 or more of the following: a) Asthma with 1 or more of the following(154)(155)(156)(157)(158): i. Respiratory distress ii. Impending or actual respiratory failure iii. Need for mechanical ventilation iv. Peak expiratory flow rate less than 30% of predicted or personal best v. Peak expiratory flow rate or FEV1 less than 40% predicted after 1 hour of initial treatment vi. Acidosis vii. Persistent or worsening Hypoxemia after initial treatment viii. Hypercapnia (eg, partial pressure of carbon dioxide greater than 43 mm Hg (5.7 kPa)) ix. Altered mental status that is severe or persistent x. Requiring continuous inhaled bronchodilator xi. Cardiac arrhythmias of immediate concern xii. Hypotension xiii. Child 5 years or younger and 1 or more of the following: A. Unable to speak or drink B. Central cyanosis C. Subcostal or subglottic contractions D. Oxygen saturation less than 92% E. Silent chest on auscultation F. Age 0 to 3 years with pulse rate greater than 200 bpm G. Age 4 to 5 years with pulse rate greater than 180 bpm b) COPD with 1 or more of the following(159): i. Need for assisted ventilation ii. Hemodynamic instability iii. Severe dyspnea unresponsive to initial treatment iv. Altered mental status v. Persistent findings despite oxygen and outpatient management, including 1 or more of the following: A. Partial pressure of oxygen less than 40 mm Hg (5.3 kPa) B. Partial pressure of carbon dioxide greater than 60 mm Hg (8.0 kPa) C. pH less than 7.25 D. Worsening Hypoxemia or acidosis c) Cor pulmonale with 1 or more of the following(159)(160)(161)(162)(163): i. Hemodynamic instability ii. Need for IV inotropic or vasoactive agent iii. Need for inhaled nitric oxide or epoprostenol iv. Need for invasive hemodynamic monitoring (eg, central venous, pulmonary artery, or arterial catheter) v. Partial pressure of oxygen less than 40 mm Hg (5.3 kPa) vi. Worsening Hypoxemia or acidosis despite oxygen therapy vii. Unstable atrial tachyarrhythmia viii. Need for assisted ventilation ix. Need for extracorporeal membrane oxygenator or right ventricular assist device d) Aspiration pneumonia with 1 or more of the following(164)(165)(166): i. Acute respiratory distress syndrome (eg, PaO2/FiO2 ratio of 300 or less) ii. Impending or actual respiratory failure iii. Need for invasive or noninvasive mechanical ventilation e) Pneumocystis jiroveci pneumonia with 1 or more of the following(168)(169): i. Hypoxia (eg, PO2 60 mm Hg (8.0 kPa) or less despite oxygen therapy) ii. Impending or actual respiratory failure iii. Need for invasive or noninvasive mechanical ventilation f) Pneumonia in adult with 1 or more of the following(136)(137): i. Need for invasive or noninvasive assisted ventilation ii. Hemodynamic instability iii. 3 or more of the following severity factors: A. PaO2/FiO2 ratio of 310 or less B. Multilobed infiltrates C. Altered mental status D. BUN 20 mg/dL (7.1 mmol/L) or greater E.WBC count less than 4000/mm3 (4 x109/L) F. Platelet count less than 100,000/mm3 (100 x109/L) G. Serum sodium less than 130 mEq/L (mmol/L) H. Temperature less than 96.8 degrees F (36 degrees C) g) Pneumonia in child with 1 or more of the following(170)(171)(172): i. Impending respiratory failure ii. Need for invasive or noninvasive ventilation iii. Hemodynamic instability iv. Pulse oximetry less than 92% on more than 50% inspired oxygen v. Recurrent apnea vi. Altered mental status h) Pulmonary hypertension requiring initiation of parenteral pulmonary vasodilator or trial of inhaled nitric oxide (eg, need for right heart catheterization)(160)(173)(174) i) Impending respiratory failure as indicated by 1 or more of the following: i. Respiratory rate greater than 30 breaths per minute in adult ii. Partial pressure of oxygen less than 60 mm Hg (8.0 kPa) on 50% oxygen or more iii. Partial pressure of carbon dioxide greater than 45 mm Hg (6.0 kPa) with pH less than 7.35 j) Respiratory failure with 1 or more of the following(116)(173)(174): i. Need for invasive or noninvasive mechanical ventilation ii. High likelihood of requiring mechanical ventilation within 24 hours iii. Observation in first several hours immediately after extubation from mechanical ventilation iv. Need for close observation and aggressive therapy, such as suctioning, chest physiotherapy, or inhalation treatments at intervals less than 1 hour v. Pharmacologic ventilatory paralysis k) Venous thromboembolism with need for systemic or catheter-directed thrombolysis (eg, for limb-threatening or organ-threatening thrombosis, obstructive superior vena cava syndrome)( 176)(177)(178) l) Pulmonary embolus with 1 or more of the following(176)(177)(178): i. Hypotension ii. Partial pressure of oxygen less than 60 mm Hg (8.0 kPa) on supplemental oxygen iii. Dangerous arrhythmia iv. Bleeding v. Need for systemic or catheter-directed thrombolysis m) Lobectomy or other major thoracic surgery n) Lung transplant o) Need for extracorporeal membrane oxygenation(179) p) Symptomatic upper airway obstruction (eg, laryngeal edema, mass) q) Massive hemoptysis (eg, greater than 200 mL per day)(180) r) Infection or thrombosis of intravenous device with 1 or more of the following(6)(7)(146): i. Unstable acute complication (eg, pericardial tamponade, tension pneumothorax , active bleeding) ii. Hemodynamic instability iii. Requirement for frequent hemodynamic measurements iv. End organ dysfunction (eg, renal failure, Altered mental status that is severe or persistent ) v. Acute renal complications due to missed dialysis (eg, severe electrolyte abnormalities, uremia, or acidosis) s) Traumatic rib fracture or fractures with 1 or more of the following(182): i. Injury severity score of 19 or greater ii. Respiratory insufficiency iii. Flail chest iv. Sternum fracture v. Vascular injury (eg, heart or great vessels) t) Pleural effusion with 1 or more of the following(183): i. Respiratory insufficiency ii. Hemothorax with active ongoing bleeding iii. Hemodynamic instability iv. Unstable comorbid condition (eg, heart failure) XXIII. Urology diagnoses or procedures, including 1 or more of the following(184 )(185): a) Renal transplant b) Post-obstructive diuresis (eg, following catheterization or stent for obstructive uropathy) greater than 4 L per day requiring large volume fluid replacement and frequent monitoring and replacement of electrolytes(186) c) Complications of any surgery requiring ICU intervention as indicated by 1 or more of the following: i. Hemodynamic instability ii. OR with complications (eg, severe arrhythmia, Hypotension ) iii. Excessive bleeding or severe coagulopathy iv. Respiratory failure or insufficiency v. Renal failure vi. Airway instability or obstruction vii. Neurologic deterioration viii. Infection with Vital sign abnormality d) Preoperative or postoperative patient requiring ICU intervention, such as pulmonary artery monitoring, mechanical ventilation, or extensive nursing care The original [employer] content created by [employer] has been revised. The portions of the content which have been revised are identified through the use of italic text or in bold, and [facility] has neither reviewed nor approved the modified material. All other unmodified content is copyright [email or web address]. Please see references footnoted in the original [employer] edition 2017 Admission Criteria Met?: Yes YOEL RAI Apr 06, 2017 05:45
[2017-04-06 05:49] LABS: CALCIUM 7.9 mg/dL (8.5-10.1); CREATININE 0.9 mg/dL (0.6-1.0); GFR 63.7; MAGNESIUM 1.3 mg/dL (1.8-2.4); PHOSPHORUS 3.6 mg/dL (2.6-4.7); POTASSIUM 3.9 mmol/L (3.5-5.1)
[2017-04-06] MEDS: diphenhydrAMINE HCL 25 MG CAPSULE PO PRN ×2 (05:51→20:37)
[2017-04-06] MEDS ORDERED: MAGNESIUM SULFATE 2GM 50 ML IV ONE (06:45)
[2017-04-06] MEDS ORDERED: IOHEXOL 300 MG/ML 100ML VIAL. ONE ×2 (06:52→08:47)
[2017-04-06] MEDS ORDERED: HEPARIN for ARTERIAL LINE 1,500 ML ONE (06:52)
[2017-04-06] MEDS ORDERED: LIDOCAINE 2% 20 ML VIAL. ONE (06:52)
[2017-04-06] MEDS ORDERED: ANTI-COAG MONITOR BY PHARMACY. MC PRN (07:30)
[2017-04-06] MEDS ORDERED: fentaNYL PF VIAL 250 MCG/5 ML VIAL ONE (07:33)
[2017-04-06] MEDS ORDERED: MIDAZOLAM HCL/PF 5 MG/5 ML VIAL. ONE (07:33)
--- NOTE | 2017-04-06 07:33 | PDOC ---
MODERATE SEDATION ASSESSMENT RISKS/ALTERNATIVES Risks/Alternatives Risks and alternatives of this type of sedation and procedure discussed with: RISK/ALTERNATIVES: Patient H & P ON CHART H & P H & P on chart and reviewed for co-morbid conditions and appropriate labs. H&P ON CHART: Yes STATUS PREG STATUS ASSESSED: N/A MEDS/ALLERGIES REVIEWED Meds/Allergies Reviewed Medications and Allergies including time and route of recently administered narcotics and sedatives. MEDS/ALLERGIES REVIEWED: Yes ASA RATING ASA RATING: IV AIRWAY ASSESSMENT Airway Assessment Airway patency, oral function limitations, presence of caps, crowns, dentures, partials, and ability to extend neck assessed. AIRWAY ASSESSMENT: Yes MALLAMPATI SCORE MALLAMPATI SCORE: II PRE-SEDATION ASSESSMENT PRE-SEDATION ASSESSMENT: Yes KIT RAMÍREZ MD Apr 06, 2017 07:33
--- NOTE | 2017-04-06 07:34 | PDOC ---
Provider Note Provider Note Current clinical situation discussed with patient and her family. She understands risks/benefits of very high risk PCI and wishes to proceed for mortality benefit. Labs reviewed. Plan for transfusion prn. KIT RAMÍREZ MD Apr 06, 2017 07:34
[2017-04-06] MEDS ORDERED: [UNRECOGNIZED DRUG - OTHER] IV ONE (07:40)
[2017-04-06] MEDS ORDERED: PHENYLEPHRINE in 0.9% NACL PF 1 MG/10 ML DISP.SYRIN. IV ONE (07:41)
[2017-04-06] MEDS ORDERED: VANCOMYCIN 1 GM in IV NORMAL SALINE 250ML 250 ML IV ONE (08:15)
[2017-04-06] MEDS ORDERED: ONDANSETRON PF 4 MG/2 ML VIAL. ONE (08:43)
[2017-04-06] MEDS ORDERED: HEPARIN for IV BOLUS 10,000 UNIT/10 ML VIAL. IV ONE (08:45)
[2017-04-06] MEDS ORDERED: fentaNYL PF VIAL 250 MCG/5 ML VIAL IV ONE (08:45)
[2017-04-06] MEDS ORDERED: diphenhydrAMINE 50 MG/ML VIAL IVP ONE (08:45)
[2017-04-06] MEDS ORDERED: IOHEXOL 300 MG/ML 100ML VIAL. IART ONE (08:45)
[2017-04-06] MEDS ORDERED: LIDOCAINE 2% 20 ML VIAL. IJ ONE (08:45)
[2017-04-06] MEDS ORDERED: ONDANSETRON PF 4 MG/2 ML VIAL. IV ONE (08:45)
[2017-04-06] MEDS ORDERED: MIDAZOLAM HCL/PF 5 MG/5 ML VIAL. IV ONE (08:45)
[2017-04-06] MEDS ORDERED: ATROPINE 0.5 MG/5 ML DISP.SYRIN. ONE (08:52)
[2017-04-06] MEDS: TACROLIMUS 1 MG CAPSULE PO SCH ×2 (09:00→20:38)
[2017-04-06] MEDS: FAMOTIDINE 20 MG TABLET. PO SCH ×2 (09:00→17:47)
[2017-04-06] MEDS: MYCOPHENOLATE MOFETIL 250 MG CAPSULE. PO SCH ×2 (09:00→20:38)
[2017-04-06] MEDS ORDERED: CONTRAST GIVEN MC PRN (09:00)
[2017-04-06] MEDS ORDERED: EPINEPHrine SYRINGE 1 MG/10 ML SYRINGE ONE (09:02)
[2017-04-06] MEDS ORDERED: MIDAZOLAM HCL/PF 2 MG/2 ML VIAL. ONE (09:29)
[2017-04-06] MEDS ORDERED: MIDAZOLAM HCL/PF 2 MG/2 ML VIAL. IV ONE ×3 (10:15→11:30)
[2017-04-06] MEDS ORDERED: NITROGLYCERIN 200 MCG/2 ML SYRINGE FOR CATH/VASC LAB. IART ONE ×2 (10:15)
[2017-04-06] MEDS ORDERED: IPRATRPIUM/ALBUTEROL 0.5/2.5MG 3 ML NEBU. NEB STA (10:34)
[2017-04-06] MEDS ORDERED: fentaNYL PF VIAL 100 MCG/2 ML VIAL IV ONE ×2 (11:15→11:30)
[2017-04-06] MEDS ORDERED: PRASUGREL 10 MG TABLET. PO ONE (12:00)
--- NOTE | 2017-04-06 13:11 | EKG ---
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
[2017-04-06] MEDS ORDERED: ASPIRIN 325 MG TABLET PO ONE (17:00)
--- NOTE | 2017-04-06 17:10 | CARD ---
APPROVED REPORT Procedure(s) performed: Sedation Time: 261 min Left heart catheterization PCI of the LM, LAD and LCx Assitance with Cardiac Output using Impeller Pump, Continous - [id number] HISTORY The patient is a 62 year-old female with a history of : renal failure without dialysis, previous CHF, diabetes mellitus with treatment, coronary artery disease, hypertension, dyslipidemia. INDICATION The indication(s) include : positive stress test, STEMI (Silent NC(no time period)), dyspnea, valvula r heart disease. PROCEDURE NARRATIVE Indication: Acute on chronic systolic congestive heart failure - [facility] I50.[place] STEMI - [facility] I21.3 History: 62-year-old woman with a past medical history of unstable angina and had an abnormal stress test and ultimately presented to the catheterization laboratory 24 hours ago for a diagnostic coronar y angiogram. Her angiography revealed critical distal left main stenosis involving the ostium of the LAD and circumflex. During her diagnostic catheterization she had transient ST elevation myocardial i nfarction which resolved with medical therapy including heparin and nitroglycerin. 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 She was felt to be prohibitive risk for cardiac surgery. After discussion of the risks and benefits of percutaneous coronary intervention she was brought to the catheterization laboratory for high risk left main PCI w ith an Impella device Description: The patient was brought to the catheterization laboratory and laid in the supine position after appro priate informed consent. The bilateral groins were prepped and draped in sterile fashion. The previou sly placed intra-aortic balloon pump via the right common femoral artery was removed over a J-tipped guidewire and subsequently an 8 Beninese sheath was placed after insertion of two Preclose suture devic es. Next, the 8 Beninese sheath was upsized to a 12 Beninese sheath after sequential dilation with a 10 F rench dilator. Next, a 6 Beninese sheath was placed in the left common femoral vein via fluoroscopic gu idance for intravenous access and resuscitation with packed red blood cells in light of the patient's anemia. Next with a 6 Beninese AL 1 catheter and a J-tipped guidewire initial attempts to engage into the left ventricle were unsuccessful. Subsequently a straight wire was used to place the AL-1 catheter in the left ventricle. Next a J-tipped guidewire was placed in the apex over which a dual lumen multipurpose catheter was advanced and simultaneous aortic and left ventricular pressures were obtained. The mean gradient was noted at 44 mmHg with a left ventricular end diastolic pressure of 26 mmHg. Subsequentl y a pre-fashioned 0.018 inch wire was placed in the left ventricular apex over which the left ventric ular assist device (Impella 2.5) was advanced into the left ventricle. Appropriate flows were confirm ed. Heparin weight-based bolus dosing was used to achieve anticoagulation with an ACT above 250. Next, an 8 Beninese EBU 3.5 guide catheter was advanced and the left main was cannulated. Initial attempts to c ross the distal left main bifurcation lesion with a pro-water wire was unsuccessful. Subsequently to Fielder XT wires were used to manipulate through the distal occlusion and a wire was placed in the di stal left anterior descending artery and the distal left circumflex. Subsequently sequential balloon angioplasty and kissing balloon angioplasty was performed with 2.0 x 12 mm balloons in the LAD and ci rcumflex . repeat enteroplasty was also performed with 3.0 and 3.5 mm compliant and noncompliant ball oons. Finally, a Xcience 3.5 x 18 mm drug-eluting stent was placed in the left main extending into th e proximal LAD and deployed at 14 brandy. Prior to placement of the stent the left circumflex guidewire was removed. Subsequently, a Choice PT wire was used to cannulate the struts of the left main stent i nto the left circumflex and serial balloon dilation with a 2.0, 2.5 and 3.0 mm balloons was performed . Finally, the left circumflex was stented in a T stent fashion with a Alpine 3.0 x 18 mm stent. Subs equently kissing balloon angioplasty was performed with noncompliant 3.0 mm balloons. Repeat angiogra phy revealed excellent stent expansion with RICHARD-3 flow in the LAD and circumflex and a 0% residual s tenosis at the level of the distal left main. The mid LAD was noted to have a 80% stenosis and this w as then covered. The lesion was heavily calcified and angioplasty was performed with a 2.5 mm x 20 mm noncompliant balloon and stented with a 2.5 mm x 18 mm Alpine stent. The stent segment was postdilat ed with the left main stent using a 3.25 noncompliant balloon at 20 brandy. Final post-PCI angiography demonstrated no evidence of proximal guide related dissection or distal wi re-related perforations. Given RICHARD-3 flow and lack of any competitions the guidewires were removed. Next, a crossover catheter was used from the left common femoral artery arterial access site and was directed towards the right common iliac system. Next a Glidewire was placed in the distal right exter nal iliac artery over which a angled glide catheter was then advanced. Initial attempts to remove the right common femoral arterial sheath and deployed the pre-close suture devices was unsuccessful like ly due to atherosclerotic disease and also likely due to previous placement of a balloon pump through that arterial access site. The previously deployed preclosed suture devices were able to since the v essel down to approximately a 6 Beninese sheath size and a third pre-close device was placed at the noo n position but this was also unsuccessful in creating a closure and therefore a 6 Beninese sheath was p laced and hemostasis was obtained via manual compression. The left-sided common femoral arterial naylor th was then removed and an 8 Beninese Angio-Seal was placed for hemostasis. The left common femoral vei n sheath was sutured to the skin and removed via manual compression in the ICU. The patient tolerated the procedure well and there were no complications. Conclusion 1. Severe aortic stenosis. MG 45 mm Hg 2. Critical distal LM bifurcation disease with transient STEMI 3. Successful insertion and removal of a Impella percutaenous left ventricular assist device. 4. Successful bifurcation stenting of the left main with a 3.5/18 Xience Alpine into the LAD and 3.0/ 18 Xience Alpine into the LCx in a T-stent fashion. Recommendations ASA 81mg daily Prasugrel 10mg daily for 1 full year, Transition to Plavix 75mg daily for lifelong therapy. Referral to cardiology for consideration of TAVR in 4-6 weeks. Cardiac rehab therapy.
[2017-04-06] MEDS: GABAPENTIN 300 MG CAPSULE. PO SCH ×2 (17:47→20:38)
[2017-04-06 18:06] LABS: HEMATOCRIT 35.6 % (36.0-47.0); HEMOGLOBIN 11.9 g/dL (12.0-15.5); RED BLOOD COUNT 3.93 x10^6/uL (3.50-5.40); WHITE BLOOD COUNT 6.8 x10^3/uL (4.0-11.0)
[2017-04-06 18:15] LABS: CALCIUM 8.3 mg/dL (8.5-10.1); GFR 56.4; POTASSIUM 4.1 mmol/L (3.5-5.1)
[2017-04-06] MEDS: IV NORMAL SALINE 1000ML BAG 1,000 ML IV SCH (20:10)
[2017-04-06] MEDS: CYCLOBENZAPRINE 10 MG TABLET. PO PRN (20:37)
[2017-04-06] MEDS: oxyCODONE/APAP 7.5/325 1 TAB TABLET PO PRN (20:38)
[2017-04-07] VITALS (24 sets, daily range): BP systolic 100–152; BP diastolic 49–78
[2017-04-07] MEDS: IV NORMAL SALINE 1000ML BAG 1,000 ML IV SCH ×3 (05:30→18:10)
[2017-04-07] MEDS: GABAPENTIN 300 MG CAPSULE. PO SCH ×2 (09:31→20:36)
[2017-04-07] MEDS: TACROLIMUS 1 MG CAPSULE PO SCH ×2 (09:31→20:36)
[2017-04-07] MEDS: MYCOPHENOLATE MOFETIL 250 MG CAPSULE. PO SCH ×2 (09:31→20:36)
[2017-04-07] MEDS: PRASUGREL 10 MG TABLET. PO SCH (09:32)
[2017-04-07] MEDS: ASPIRIN ENTERIC COATED 81 MG TABLET.DR. PO SCH (09:32)
[2017-04-07] MEDS: ALPRAZolam 0.25 MG TABLET PO PRN ×2 (09:32→23:40)
[2017-04-07] MEDS: FAMOTIDINE 20 MG TABLET. PO SCH ×2 (09:32→20:36)
[2017-04-07 12:23] LABS: CALCIUM 8.2 mg/dL (8.5-10.1); CHOLESTEROL/HDL RATIO 2.7; GFR 56.4; MAGNESIUM 1.4 mg/dL (1.8-2.4); POTASSIUM 3.9 mmol/L (3.5-5.1)
--- NOTE | 2017-04-07 13:10 | PDOC ---
EDWIN LOYD PHOSPHORIC ACID SUPERVISOR 04/07/17 1310: CARDIO Progress Notes Date and Time Date of Service 04/07/2017 Time of Evaluation 1215 Subjective Subjective: No Chest Pain, No shortness of breath, No Palpitations, No Dizziness, Other (feels good today, denies discomfort) Vitals Vitals Vital Signs Date Time Temp Pulse Resp B/P (MAP) Pulse Ox O2 Delivery O2 Flow Rate FiO2 04/07/17 10:08 85 15 139/68 (91) 97 Room Air 04/07/17 07:00 98.2 98.2 04/06/17 12:30 2.0 Weight Weight [ ] Input and Output Intake and Output Intake and Output 04/08/17 06:59 Intake Total 120 ml Output Total 455 ml Balance -335 ml Intake Oral 120 ml Output Urine Total 455 ml Laboratory Labs Laboratory Tests Test 04/06/17 14:00 04/06/17 17:58 04/07/17 05:37 Activated Clotting Time 172 sec (92-181) White Blood Count 6.8 x10^3/uL (4.0-11.0) 5.0 x10^3/uL (4.0-11.0) Red Blood Count 3.93 x10^6/uL (3.50-5.40) 3.27 x10^6/uL (3.50-5.40) Hemoglobin 11.9 g/dL (12.0-15.5) 10.1 g/dL (12.0-15.5) Hematocrit 35.6 % (36.0-47.0) 29.0 % (36.0-47.0) Mean Corpuscular Volume 91 fL (79-100) 89 fL (79-100) Mean Corpuscular Hemoglobin 30 pg (25-35) 31 pg (25-35) Mean Corpuscular Hemoglobin Concent 33 g/dL (31-37) 35 g/dL (31-37) Red Cell Distribution Width 15.0 % (11.5-14.5) 15.1 % (11.5-14.5) Platelet Count 145 x10^3/uL (140-400) 124 x10^3/uL (140-400) Sodium Level 137 mmol/L (136-145) 139 mmol/L (136-145) Potassium Level 4.1 mmol/L (3.5-5.1) 3.9 mmol/L (3.5-5.1) Chloride Level 106 mmol/L (98-107) 110 mmol/L (98-107) Carbon Dioxide Level 24 mmol/L (21-32) 23 mmol/L (21-32) Anion Gap 7 (6-14) 6 (6-14) Blood Urea Nitrogen 12 mg/dL (7-20) 12 mg/dL (7-20) Creatinine 1.0 mg/dL (0.6-1.0) 1.0 mg/dL (0.6-1.0) Estimated GFR (Cockcroft-Gault) 56.4 56.4 Glucose Level 109 mg/dL (70-99) 91 mg/dL (70-99) Calcium Level 8.3 mg/dL (8.5-10.1) 8.2 mg/dL (8.5-10.1) Magnesium Level 1.4 mg/dL (1.8-2.4) 1.4 mg/dL (1.8-2.4) Triglycerides Level 68 mg/dL (0-150) Cholesterol Level 118 mg/dL (0-200) LDL Cholesterol, Calculated 61 mg/dL (0-100) VLDL Cholesterol, Calculated 14 mg/dL (0-40) Non-HDL Cholesterol Calculated 75 mg/dL (0-129) HDL Cholesterol 43 mg/dL (40-60) Cholesterol/HDL Ratio 2.7 Physical Exam HEENT: Neck Supple W Full Motion Chest: Symmetric LUNGS: Clear to Auscultation Heart: S1S2, RRR (SR no significant ectopies) Abdomen: Soft N/T Extremities: No Edema, No Calf Tenderness Neurology: alert, oriented, follow commands Other Exams bilateral arteriotomy sites intact with minimal bruising, no swelling or redness. Neurovascular status to bilateral LE intact. Assessment Assessment 1. CAD: initially noted with abnormal stress test, ensuing LHC noted with critical LM with post op IABP support 04/05/2017 2. S/P PCI/JOSE to LM/LAD to LCx in T stent fashion with impella assist 04/06/2017 3. Severe : 0.8 cm2 with MPG of 45 mmHg. EF 70% 4. Past history of DM1 with noted hx of renal and pancreatic transplant 5. Chronic immunosuppression: cellcept Recommendations 1. ASA/prasugrel: with prasugrel for 1 yr then transition to plavix afterwards for lifelong DAPT. 2. Will refer to for TAVR for consideration in 4-6 weeks. 3. Pt will need to follow up with the transplant team in regards to TAVR 4. Cardiac rehab 5. Replace Mg. 6. Will restart home losartan tomorrow. Will consider for BB pending BP adequacy 7. No statin at this time. Lipids well controlled without use of statin. KIT RAMÍREZ MD 04/07/17 2233: CARDIO Progress Notes Plan Plan Pt. seen and examined. AGree with above JOB COST ESTIMATOR note No acute events overnight. Denies chest pain. Up out of bed. Labs stable, cr unchanged. UOP excellent. Keep even fluid balance. Will continue ASA, prasugrel and start low dose statin for pleitrophic effects Will d/w patient on an outpt basis plans for aortic valve treatment. If stable overnight, plan for DC tomorrow. EDWIN LOYD APRN Apr 07, 2017 13:10 KIT RAMÍREZ MD Apr 07, 2017 22:33
[2017-04-07] MEDS ORDERED: MAGNESIUM SULFATE 4GM 100 ML IV ONE (14:00)
[2017-04-07] MEDS ORDERED: IV NORMAL SALINE 500ML BAG 500 ML IV ONE (17:30)
[2017-04-07] MEDS: TEMAZEPAM 15 MG CAPSULE PO PRN (21:02)
[2017-04-07] MEDS ORDERED: ATORVASTATIN CALCIUM 20 MG TABLET PO SCH (23:00)
[2017-04-07] MEDS: oxyCODONE/APAP 7.5/325 1 TAB TABLET PO PRN (23:38)
[2017-04-08] VITALS (11 sets, daily range): BP systolic 114–143; BP diastolic 54–68
[2017-04-08] MEDS: IV NORMAL SALINE 1000ML BAG 1,000 ML IV SCH (00:41)
[2017-04-08] MEDS: GABAPENTIN 300 MG CAPSULE. PO SCH (08:52)
[2017-04-08] MEDS: FAMOTIDINE 20 MG TABLET. PO SCH (08:52)
[2017-04-08] MEDS: PRASUGREL 10 MG TABLET. PO SCH (08:52)
[2017-04-08] MEDS: ASPIRIN ENTERIC COATED 81 MG TABLET.DR. PO SCH (08:52)
[2017-04-08 09:25] LABS: CALCIUM 8.4 mg/dL (8.5-10.1); GFR 56.4; POTASSIUM 3.3 mmol/L (3.5-5.1)
[2017-04-08] MEDS: TACROLIMUS 1 MG CAPSULE PO SCH (10:14)
[2017-04-08] MEDS: MYCOPHENOLATE MOFETIL 250 MG CAPSULE. PO SCH (10:14)
[2017-04-08] MEDS ORDERED: POTASSIUM CHLORIDE 20 MEQ TABLET.ER. PO ONE (10:15)
[2017-04-08] MEDS ORDERED: FLU VACC QS2017-18 (36MOS+)/PF 0.5 ML SYRINGE. VAX IM ONE (11:45)
--- NOTE | 2017-04-08 12:03 | PDOC3 ---
Discharge Summary Visit Information Date of Admission: Apr 05, 2017 Date of Discharge: Apr 08, 2017 Admitting Diagnosis: Abnormal stress test, CAD Final Diagnosis CAD with critical LM, S/P PCI/JOSE, HTN, HLP, chronic immunosuppression, postoperative anemia, severe aortic stenosis Brief Hospital Course Allergies Allergies Coded Allergies Type Severity Reaction Last Updated Verified No Known Drug Allergies 11/15/16 No Vital Signs Vital Signs Date Time Temp Pulse Resp B/P (MAP) Pulse Ox O2 Delivery O2 Flow Rate FiO2 04/08/17 10:00 82 18 135/65 (88) Room Air 04/08/17 08:00 99 04/08/17 07:00 97.9 97.9 Lab Results Laboratory Tests Test 04/06/17 14:00 04/06/17 17:58 04/07/17 05:37 04/08/17 08:39 Activated Clotting Time 172 sec (92-181) White Blood Count 6.8 x10^3/uL (4.0-11.0) 5.0 x10^3/uL (4.0-11.0) Red Blood Count 3.93 x10^6/uL (3.50-5.40) 3.27 x10^6/uL (3.50-5.40) Hemoglobin 11.9 g/dL (12.0-15.5) 10.1 g/dL (12.0-15.5) Hematocrit 35.6 % (36.0-47.0) 29.0 % (36.0-47.0) Mean Corpuscular Volume 91 fL (79-100) 89 fL (79-100) Mean Corpuscular Hemoglobin 30 pg (25-35) 31 pg (25-35) Mean Corpuscular Hemoglobin Concent 33 g/dL (31-37) 35 g/dL (31-37) Red Cell Distribution Width 15.0 % (11.5-14.5) 15.1 % (11.5-14.5) Platelet Count 145 x10^3/uL (140-400) 124 x10^3/uL (140-400) Sodium Level 137 mmol/L (136-145) 139 mmol/L (136-145) 141 mmol/L (136-145) Potassium Level 4.1 mmol/L (3.5-5.1) 3.9 mmol/L (3.5-5.1) 3.3 mmol/L (3.5-5.1) Chloride Level 106 mmol/L (98-107) 110 mmol/L (98-107) 108 mmol/L (98-107) Carbon Dioxide Level 24 mmol/L (21-32) 23 mmol/L (21-32) 27 mmol/L (21-32) Anion Gap 7 (6-14) 6 (6-14) 6 (6-14) Blood Urea Nitrogen 12 mg/dL (7-20) 12 mg/dL (7-20) 11 mg/dL (7-20) Creatinine 1.0 mg/dL (0.6-1.0) 1.0 mg/dL (0.6-1.0) 1.0 mg/dL (0.6-1.0) Estimated GFR (Cockcroft-Gault) 56.4 56.4 56.4 Glucose Level 109 mg/dL (70-99) 91 mg/dL (70-99) 143 mg/dL (70-99) Calcium Level 8.3 mg/dL (8.5-10.1) 8.2 mg/dL (8.5-10.1) 8.4 mg/dL (8.5-10.1) Magnesium Level 1.4 mg/dL (1.8-2.4) 1.4 mg/dL (1.8-2.4) 2.0 mg/dL (1.8-2.4) Triglycerides Level 68 mg/dL (0-150) Cholesterol Level 118 mg/dL (0-200) LDL Cholesterol, Calculated 61 mg/dL (0-100) VLDL Cholesterol, Calculated 14 mg/dL (0-40) Non-HDL Cholesterol Calculated 75 mg/dL (0-129) HDL Cholesterol 43 mg/dL (40-60) Cholesterol/HDL Ratio 2.7 Laboratory Tests Test 04/08/17 08:39 Sodium Level 141 mmol/L (136-145) Potassium Level 3.3 mmol/L (3.5-5.1) Chloride Level 108 mmol/L (98-107) Carbon Dioxide Level 27 mmol/L (21-32) Anion Gap 6 (6-14) Blood Urea Nitrogen 11 mg/dL (7-20) Creatinine 1.0 mg/dL (0.6-1.0) Estimated GFR (Cockcroft-Gault) 56.4 Glucose Level 143 mg/dL (70-99) Calcium Level 8.4 mg/dL (8.5-10.1) Magnesium Level 2.0 mg/dL (1.8-2.4) Brief Hospital Course Ms Lloyd is a pleasant 62 yo female who has been noted with abnormal stress test, she has been having intermittent atypical CP. She is significant for renal and pancreatic transplant as well as CAD. Due to the latter she was prepped with IVF for renal optimization prior to contrast load. LHC was then performed and noted with critical LM with post op IABP support 04/05/2017. In addition she also has been noted with severe . There has been no hx of syncope , respiratory distress issues. She is not a surgical candidate prompting complex PCI. She is S/P complex PCI/JOSE to LM/LAD to LCx in T stent fashion with impella assist on 04/06/2017 and tolerated the procedure well without complications. She did have postoperative anemia which prompted 2 unit of PRBC transfusion. AOx3, lungs are clear to auscultation, bilateral groin arteriotomy site intact without swelling or redness and neurovascular status to bilateral LE intact. VSS. Labs have been stable. She is to resume her home meds including her immunosuppression meds with addition of toprol, lipitor, and effient. Resume losartan but no norvasc. She is to follow up in office in 2-3 weeks and will arrange [facility] referral for possible consideration for TAVR as well as follow up with her outpt transplant team. Discussed treatment plan and postcath instruction with pt. Discharge Information Condition at Discharge: Stable Follow Up: Weeks (2) Disposition/Orders: D/C to Home Scheduled Aspirin (Aspirin Ec), 1 TAB PO DAILY, (Reported) Atorvastatin Calcium (Atorvastatin Calcium), 20 MG PO HS, (Reported) Cholecalciferol (Vitamin D3) (Vitamin D3), 500 UNIT PO DAILY, (Reported) Cyanocobalamin (Vitamin B-12) (Vitamin B-12), 500 MCG PO DAILY, (Reported) Gabapentin (Gabapentin), 300 MG PO DAILY08, (Reported) Gabapentin (Gabapentin), 600 MG PO HS, (Reported) Losartan Potassium (Cozaar), 50 MG PO HS, (Reported) Magnesium Oxide (Magnesium), 1,000 MG PO DAILY, (Reported) Metoprolol Succinate (Metoprolol Succinate ( Xl )), 1 TAB PO DAILY, (Reported) Mycophenolate Mofetil (Cellcept), 1 TAB PO BID, (Reported) Prasugrel Hcl (Effient), 1 TAB PO DAILY, (Reported) Tacrolimus (Prograf), 2 CAP PO BID, (Reported) Scheduled PRN Linaclotide (Linzess), 145 MCG PO BID PRN for CONSTIPATION, (Reported) Oxycodone/Apap 7.5-325 (Percocet 7.5-325 Mg Tablet), 1 TAB PO PRN Q6HRS PRN for PAIN, (Reported) Temazepam (Temazepam), 15 MG PO HS PRN for INSOMNIA, (Reported) Discontinued Medications Amlodipine Besylate (Norvasc), 5 MG PO HS, (Reported) Patient Instructions Patient Instructions GENERAL INSTRUCTIONS: 1. Your dressing should be removed prior to leaving the hospital. 2. It is OK to shower the day after your procedure. 3. If you received stents, be sure to carry your stent information card with you in your wallet/purse at all times. 4. Call the office immediately at [phone] if you notice any fever or if there is redness, worsening tenderness/pain, increased bruising, or drainage from the puncture site. 5. Should you have bleeding from the site, lie down immediately & put pressure on the site. The pressure should be hard enough to stop the bleeding. Have the nearest person call 911. DO NOT try to drive to the ER with active bleeding. 6. If you notice a change in color, coolness to touch, or loss of feeling in the affected extremity, come to the emergency room. Please have someone drive you or call 911 if no one is available. DO NOT drive yourself. 7. If you normally take glucophage (metformin), please do not take this medicine for 48 hours following your procedure. 8. DO NOT STOP TAKING YOUR PLAVIX or effient OR ASPIRIN UNLESS IT IS CLEARED BY A INSTRUCTIONAL TECHNOLOGY COACH OF YOUR CARDIOLOGY PHYSICIAN AT OUR OFFICE. 9. QUIT SMOKING: the [place] [employer], [place] [employer], & [place] [employer] have cessation resources available on their websites 10. Please have someone available to drive you home from the hospital as you may be limited by sedation medications given during the procedure. Femoral (Groin) access: 1. Do no lifting, pushing, pulling, bending, stooping, or recurrent stair climbing for 3 days following your procedure. 2. Once past the first 3 days, do not do any HEAVY exertion or lifting for one week following the procedure. No gym workouts, running, lifting greater than a gallon of milk, etc 3. Do not submerge in bath or pool for one week. OK to drive 3 days following your procedure, but if going long distance, do not go alone & take hourly breaks to get out of car and walk around. Call the office at [phone] for any questions or concerns. EDWIN LOYD APRN Apr 08, 2017 12:03
[2017-04-08] MEDS ORDERED: METO-239 PO ×2 (12:06→13:17)
[2017-04-08] MEDS ORDERED: ATOR20TA PO (12:06)
[2017-04-08] MEDS ORDERED: PRAS10TA9 PO ×2 (12:06→13:17)
[2017-04-08 12:36] LABS: BASO % 0 % (0-3); EOS % 9 % (0-3); HEMATOCRIT 32.3 % (36.0-47.0); HEMOGLOBIN 10.7 g/dL (12.0-15.5); LYMPH # 0.7 x10^3/uL (1.0-4.8); LYMPH % 19 % (24-48); MEAN CORPUSCULAR HEMOGLOBIN 31 pg (25-35); MEAN CORPUSCULAR HGB CONC 33 g/dL (31-37); MEAN CORPUSCULAR VOLUME 92 fL (79-100); MONO % 12 % (0-9); NEUT % 59 % (31-73); PLATELET COUNT 134 x10^3/uL (140-400); RED CELL DISTRIBUTION WIDTH 14.8 % (11.5-14.5); WHITE BLOOD COUNT 3.5 x10^3/uL (4.0-11.0)
[2017-04-08] MEDS ORDERED: ATOR20TA58 PO (13:17)
[2017-04-08] MEDS ORDERED: ASPI-612 PO (13:35)
[2017-04-09] MEDS ORDERED: METOPROLOL SUCC 24HR ER 25 MG TAB.ER.24H. PO SCH (09:00)
== END 2017-04-08 13:49 | disposition home or self-care (01) | DRG 216 ==
LOC: CCL 06:30 → 1 WEST ICU 10:00
PROVIDERS: ADMIT Internal Medicine Cardiovascular Disease; ATTEND Internal Medicine Cardiovascular Disease
PROC: B2111ZZ Fluoroscopy of Multiple Coronary Arteries using Low Osmolar Contrast (ICD-10-PCS; 2017-04-05)
PROC: 5A02210 Assistance with Cardiac Output using Balloon Pump, Continuous (ICD-10-PCS; 2017-04-05)
PROC: 4A023N7 Measurement of Cardiac Sampling and Pressure, Left Heart, Percutaneous Approach (ICD-10-PCS; principal; 2017-04-06)
PROC: 30233N1 Transfusion of Nonautologous Red Blood Cells into Peripheral Vein, Percutaneous Approach (ICD-10-PCS; 2017-04-06)
PROC: B2111ZZ Fluoroscopy of Multiple Coronary Arteries using Low Osmolar Contrast (ICD-10-PCS; 2017-04-06)
PROC: 5A0221D Assistance with Cardiac Output using Impeller Pump, Continuous (ICD-10-PCS; 2017-04-06)
PROC: 027135Z Dilation of Coronary Artery, Two Arteries with Two Drug-eluting Intraluminal Devices, Percutaneous Approach (ICD-10-PCS; 2017-04-06)
PROC: 02PA3RZ Removal of Short-term External Heart Assist System from Heart, Percutaneous Approach (ICD-10-PCS; 2017-04-06)
DX: I21.3 ST elevation (STEMI) myocardial infarction of unspecified site (principal); I50.23 Acute on chronic systolic (congestive) heart failure; I11.0 Hypertensive heart disease with heart failure; Z94.83 Pancreas transplant status; J44.9 Chronic obstructive pulmonary disease, unspecified; Z94.0 Kidney transplant status; E10.9 Type 1 diabetes mellitus without complications; D64.9 Anemia, unspecified; I35.0 Nonrheumatic aortic (valve) stenosis; R07.9 Chest pain, unspecified; Z99.3 Dependence on wheelchair; E78.5 Hyperlipidemia, unspecified; H54.0 Blindness, both eyes; I25.110 Atherosclerotic heart disease of native coronary artery with unstable angina pectoris; Z85.72 Personal history of non-Hodgkin lymphomas; Z92.21 Personal history of antineoplastic chemotherapy; Z96.649 Presence of unspecified artificial hip joint; Z96.659 Presence of unspecified artificial knee joint
CPT/HCPCS: 33967; 33968; 33990; 36415; 80048; 80061; 82565; 83735; 84100; 85025; 85027; 85347; 85520; 85610; 85730; 86850; 86900; 86901; 86920; 87641; 90686; 92928; 93005; 93308; 93320; 93458; 94640; 99152; 99153; C1725; C1769; C1771; C1874; C1887; C1892; G0269; J1170; J1200; J1644; J2250; J2405; J3010; J3370; J3475; J3490; J7030; J7040; J7050; J7060; J7507; J7517; J7620; P9016; Q0163; Q9967; J2001

== ENCOUNTER 2018-01-22 11:26 | Emergency (ER) | payer MEDICARE, OTHER ==
[2018-01-22] MEDS: MORPHINE SULFATE 10 MG/ML VIAL. IM (11:56)
[2018-01-22] MEDS: MORPHINE SULFATE 4 MG/ML DISP.SYRIN. IV ×3 (13:11→17:13)
[2018-01-22 13:13] LABS: BASO % 0 % (0-3); EOS # 0.1 x10^3/uL (0.0-0.7); EOS % 1 % (0-3); HEMATOCRIT 35.8 % (36.0-47.0); HEMOGLOBIN 11.9 g/dL (12.0-15.5); LYMPH # 0.6 x10^3/uL (1.0-4.8); LYMPH % 6 % (24-48); MEAN CORPUSCULAR HEMOGLOBIN 30 pg (25-35); MEAN CORPUSCULAR HGB CONC 33 g/dL (31-37); MEAN CORPUSCULAR VOLUME 91 fL (79-100); MONO # 0.6 x10^3/uL (0.0-1.1); MONO % 6 % (0-9); NEUT # 7.9 x10^3uL (1.8-7.7); NEUT % 86 % (31-73); PLATELET COUNT 184 x10^3/uL (140-400); RED BLOOD COUNT 3.93 x10^6/uL (3.50-5.40); RED CELL DISTRIBUTION WIDTH 14.4 % (11.5-14.5); WHITE BLOOD COUNT 9.1 x10^3/uL (4.0-11.0)
[2018-01-22 13:18] LABS: ADD MAN DIFF? YES
[2018-01-22 13:28] LABS: ANION GAP 6 (6-14); BLOOD UREA NITROGEN 16 mg/dL (7-20); CALCIUM 9.1 mg/dL (8.5-10.1); CARBON DIOXIDE 28 mmol/L (21-32); CHLORIDE 107 mmol/L (98-107); CREATININE 1.3 mg/dL (0.6-1.0); GFR 41.5; GLUCOSE 131 mg/dL (70-99); POTASSIUM 4.4 mmol/L (3.5-5.1); SODIUM 141 mmol/L (136-145)
[2018-01-22 14:13] LABS: % BANDS 7 % (0-9); % LYMPHS 8 % (24-48); % MONOS 7 % (0-10); % SEGS 78 % (35-66)
[2018-01-22 14:15] LABS: PLT ESTIMATE ADEQUATE (ADEQUATE)
[2018-01-22] MEDS ORDERED: MORPHINE SULFATE 4 MG/ML DISP.SYRIN. IV (15:15)
== END 2018-01-22 17:25 | disposition short-term general hospital (02) ==
LOC: ER 11:26
DX: S72.001A Fracture of unspecified part of neck of right femur, initial encounter for closed fracture (principal); E11.9 Type 2 diabetes mellitus without complications; I10 Essential (primary) hypertension; Z90.49 Acquired absence of other specified parts of digestive tract; Z98.51 Tubal ligation status; Z96.641 Presence of right artificial hip joint; W05.0XXA Fall from non-moving wheelchair, initial encounter; Y93.89 Activity, other specified; Y99.8 Other external cause status; Y92.89 Other specified places as the place of occurrence of the external cause
CPT/HCPCS: 36415; 51702; 72192; 73502; 80048; 85007; 85025; 96372; 96374; 96376; 99285-25; J2270

== ENCOUNTER → 2019-06-26 | Outpatient (CLI) | payer OTHER ==
[2018-01-22 16:33] VITALS: BP 136/59
[~2019-06-26] MED LIST changes: +AMLO5TAB4 PO; +ASPI-612 PO; +ATOR20TA PO; +ATOR20TA58 PO; +CHOL10003 PO; +CYAN-25 PO; +GABA300C18 PO; +GABA600T7 PO; +LINZESS145 MCG PO; +LOSA-73 PO; +MAGN400C PO; +METO-239 PO; +MYCO500T PO; +OXYC1TAB19 PO; +PRAS10TA9 PO; -REGADENOSON 0.4 MG/5 ML DISP.SYRIN. IV ONE; +TACR1CAP4 PO; +TEMA15CA PO
--- NOTE | 2019-06-26 11:13 | CARD ---
MR#: [id number] Date of Study: 06/26/2019 Ordering Physician: KIT RAMÍREZ, Referring Physician: KIT RAMÍREZ, Tech: Rossana Villalobos RDCS APPROVED REPORT EXAM: Two-dimensional and M-mode echocardiogram with Doppler and color Doppler. Other Information Quality : Fair Technically limited study due to body habitus. INDICATION Aortic Valve Disease Surgery/Intervention Status/Post Aortic Valve Replacement: Bioprosthetic Type: Medtronic 23 mm Date: 08/04/2017 2D DIMENSIONS RVDd2.5 (2.9-3.5cm)Left Atrium(2D)3.0 (1.6-4.0cm) IVSd0.9 (0.7-1.1cm)Aortic Root(2D)2.2 (2.0-3.7cm) LVDd3.4 (3.9-5.9cm)LVOT Diameter2.3 (1.8-2.4cm) PWd1.0 (0.7-1.1cm)LVDs2.5 (2.5-4.0cm) FS (%) 27.0 %SV25.7 ml LVEF(%)53.8 (>50%) Aortic Valve AoV Peak Aqmar.129.3cm/sAoV VTI19.9cm AO Peak GR.6.7mmHgLVOT Peak Qamar.65.4cm/s AO Mean GR.3mmHgAVA (VMAX)1.28cm2 NITIN (VTI)2.10cm2 Mitral Valve MV E Vgszhclc54.1cm/sMV E Peak Gr.5mmHg MV DECEL [id number] A Fjdqcoxj224.7cm/s MV E Mean Gr.2mmHgE/A Ratio0.6 Tricuspid Valve TR P. Tkkkdebo300or/sRAP [id number] TR Peak Gr.49utOsPFWH59wnXw Pulmonary Vein S1 Ktjsjost46.2cm/sD2 Xanwcrfz98.2cm/s LEFT VENTRICLE There is normal left ventricular wall thickness. Left ventricle systolic function is low normal. The Ejection Fraction is 50-55%. Septal motion consistent with conduction abnormality. Otherwise, grossly normal wall motion. Transmitral Doppler flow pattern is Grade I-abnormal relaxation pattern. RIGHT VENTRICLE The right ventricle is normal size. The right ventricular systolic function is normal. ATRIA The left atrium size is normal. The right atrium size is normal. The interatrial septum is intact wit h no evidence for an atrial septal defect or patent foramen ovale as noted on 2-D or Doppler imaging. AORTIC VALVE Prior transcatheter aortic valve replacement. Calculated aortic valve area is 2.1 cm2 with maximum pr essure gradient of 7 mmHg and mean pressure gradient of 4 mmHg. MITRAL VALVE Mitral annular calcification is moderate. The mitral valve is calcified and displays decreased openin g. There is no evidence of mitral valve prolapse. There is no mitral valve stenosis. TRICUSPID VALVE The tricuspid valve is normal in structure and function. Doppler and Color Flow revealed physiologica l tricuspid regurgitation. The PA pressure was estimated at 19 mmHg. There is no tricuspid valve sten osis. PULMONIC VALVE The pulmonic valve is not well visualized. Doppler and Color Flow revealed no pulmonic valvular regur gitation. There is no pulmonic valvular stenosis. GREAT VESSELS The aortic root is normal in size. The ascending aorta is normal in size. The IVC is normal in size a nd collapses >50% with inspiration. PERICARDIAL EFFUSION There is no evidence of significant pericardial effusion. Critical Notification Critical Value: No <Conclusion> Left ventricle systolic function is low normal. The Ejection Fraction is 50-55%. Septal motion consistent with conduction abnormality. Otherwise, grossly normal wall motion. Prior transcatheter aortic valve replacement. Calculated aortic valve area is 2.1 cm2 with maximum pressure gradient of 7 mmHg and mean pressure gr adient of 4 mmHg. Signed by : Kit Ramírez, Electronically Approved : 06/26/2019 11:12:29
== END | disposition home or self-care (01) ==
LOC: ECHO 09:44
PROVIDERS: ATTEND Internal Medicine Cardiovascular Disease
DX: I08.1 Rheumatic disorders of both mitral and tricuspid valves (principal)
CPT/HCPCS: 93306

== ENCOUNTER 2020-09-20 04:51 | Inpatient (IN) | payer OTHER ==
[~2020-09-20] VITALS: Ht 162.6 cm; Wt 61.0 kg
[~2020-09-20 04:51] MED LIST changes: -ASPI-612 PO; +ASPI-886 PO; -TACR1CAP4 PO; +TACR1CAP5 PO
[2020-09-20 05:28] LABS: BASO # 0.1 x10^3/uL (0.0-0.2); BASO % 0 % (0-3); EOS # 0.1 x10^3/uL (0.0-0.7); EOS % 0 % (0-3); HEMOGLOBIN 11.8 g/dL (12.0-15.5); LYMPH % 3 % (24-48); MEAN CORPUSCULAR HEMOGLOBIN 27 pg (25-35); MEAN CORPUSCULAR HGB CONC 32 g/dL (31-37); MEAN CORPUSCULAR VOLUME 84 fL (79-100); MONO # 0.8 x10^3/uL (0.0-1.1); MONO % 2 % (0-9); NEUT # 31.1 x10^3/uL (1.8-7.7); NEUT % 94 % (31-73); PLATELET COUNT 311 x10^3/uL (140-400); RED BLOOD COUNT 4.39 x10^6/uL (3.50-5.40); RED CELL DISTRIBUTION WIDTH 17.6 % (11.5-14.5); WHITE BLOOD COUNT 33.1 x10^3/uL (4.0-11.0)
[2020-09-20] MEDS ORDERED: ACETAMINOPHEN 325 MG TABLET. PO ONE (05:30)
[2020-09-20 05:36] LABS: CALCIUM 9.2 mg/dL (8.5-10.1); CREATININE 1.1 mg/dL (0.6-1.0); POTASSIUM 3.9 mmol/L (3.5-5.1)
--- NOTE | 2020-09-20 05:39 | PHYS DOC ---
Past Medical History Past Medical History: Diabetes-Type I, Hypertension Past Surgical History: Cholecystectomy, Hip Replacement, Tubal ligation, Other Additional Past Surgical Histo: AORTIC VALVE REPLACEMENT, R HIP, KIDNEY AND PANCREAS TRANSPLANT Smoking Status: Never Smoker Alcohol Use: None Drug Use: None General Adult EDM: Chief Complaint: SHORTNESS OF BREATH HPI: HPI: Patient is a 65 year old female who is currently on no prescription medications presents via EMS for evaluation of shortness of breath and fever. Patient states shes been shortness of breath for approximately 1 week and SOB has become progressively worse. She states over the last several days she has had a fever on and off. Patient has a cough without any sputum production. She denies any chest pain. EMS states upon their arrival patient had a RA oxygen saturation of 70%. EMS placed patient on a nonrebreather with 100% oxygen saturation. Patient currently febrile with a temperature of 100.3 Review of Systems: Review of Systems: Review of systems: Constitutional symptoms- Positive fever, no chills. Eyes- No Discharge, No Visual Loss Respiratory symptoms- Positive shortness of breath, No wheezing, No Dyspnea on Exertion positive cough Cardiovascular Systems; No chest pain, No Palpitations, No syncope Gastrointestinal symptoms: NO abdominal pain, no nausea, no vomiting or diarrhea. Genitourinary symptoms: No dysuria. Musculoskeletal symptoms: No back pain No extremity pain. NEUROLOGICAL Symptoms: No headache, no generalized weakness; No focal Weakness Heart Score: Risk Factors: Risk Factors: DM, Current or recent (<one month) smoker, HTN, HLP, family history of CAD, obesity. Risk Scores: Score 0 - 3: 2.5% MACE over next 6 weeks - Discharge Home Score 4 - 6: 20.3% MACE over next 6 weeks - Admit for Clinical Observation Score 7 - 10: 72.7% MACE over next 6 weeks - Early Invasive Strategies Current Medications: Current Medications Medications (Trade) Dose Ordered Sig/Sobia Start Time Stop Time Status Last Admin Dose Admin Acetaminophen (Tylenol) 650 mg 1X ONCE 09/20/20 05:30 09/20/20 05:31 DC Allergies: Allergies: Allergies Coded Allergies Type Severity Reaction Last Updated Verified No Known Drug Allergies 11/15/16 No Physical Exam: PE: General: alert, no acute distress. Skin: warm, dry and intact. Head:: Normocephalic, atraumatic. Neck: Trachea midline. Eyes: EOMI, Normal conjunctiva, No drainage CARDIOVASCULAR: Cardia RESPIRATORY: Mild respiratory distress, tachypnea Back: Full range of motion. MUSCULOSKELETAL: Full range of motion of bilateral upper and lower extremities. GASTROINTESTINAL: Abdomen soft without rebound or guarding. NEUROLOGICAL: Alert and noted to person, place and time. No neurological deficits observed Psychiatric: Cooperative. Normal judgment EKG: EKG: EKG performed at 512 heart rate 115 sinus tachycardia no acute AK [] Radiology/Procedures: Radiology/Procedures: [] Impression: 1. Bilateral airspace opacities with a predilection for the basilar and subpleural regions. A multifocal atypical/viral pneumonia such as COVID-19 can have this appearance. 2. The cardiomediastinal silhouette is prominent in size and the central vasculature plethoric. A component of interstitial/alveolar edema is possible as well however there is no large effusion. Electronically signed by: YINA LAWRENCE MD (09/20/2020 5:43 AM) [facility] Course & Med Decision Making: Course & Med Decision Making Pertinent Labs and Imaging studies reviewed. (See chart for details) [] Patient was evaluated for chief complaint. Work up consisted of laboratory analysis radiologic imaging and EKG. Results reviewed. Patient was on a nonrebreather on arrival her oxygen saturation 100%. Patient heart rate tach she denied any chest pain. Chest x-ray consistent with Covid. Treatment included IV fluids, Rocephin and Zithromax and Decadron. Initial troponin mildly elevated--- patient denied any chest pain EKG was tachycardic no STEMI. Patient was admitted to the hospitalist with pulmonary and cardiology consults. Vito Disclaimer: Vito Disclaimer: This electronic medical record was generated, in whole or in part, using a voice recognition dictation system. Departure Departure Impression: Primary Impression: Pneumonia Additional Impressions: Person under investigation for COVID-19 NSTEMI (non-ST elevated myocardial infarction) Disposition: 09 ADMITTED INPT THIS HOSP Admitting Physician: JAVIER Condition: STABLE Referrals: BRADLEY FATIMA MD (PCP) LUCILLE SIMPSON DO Sep 20, 2020 05:39
[2020-09-20 05:42] LABS: ALBUMIN/GLOBULIN RATIO 0.9 (1.0-1.7); TOTAL BILIRUBIN 0.9 mg/dL (0.2-1.0); TOTAL PROTEIN 6.5 g/dL (6.4-8.2)
[2020-09-20] MEDS ORDERED: MORPHINE SULFATE 2 MG/ML VIAL. IV PRN (05:45)
[2020-09-20] MEDS ORDERED: ONDANSETRON PF 4 MG/2 ML VIAL. IV PRN (05:45)
--- NOTE | 2020-09-20 05:46 | RAD ---
Study: XR CHEST 1V Indication: Shortness of breath. Fever. Comparison: None. Findings: Airspace opacities with a basilar and subpleural predilection on both the right and left. Background increased interstitial markings. The cardiomediastinal silhouette is enlarged. Mildly plethoric centr al vasculature. No large effusion or pneumothorax. TAVR device. Impression: 1. Bilateral airspace opacities with a predilection for the basilar and subpleural regions. A multifo tom atypical/viral pneumonia such as COVID-19 can have this appearance. 2. The cardiomediastinal silhouette is prominent in size and the central vasculature plethoric. A com ponent of interstitial/alveolar edema is possible as well however there is no large effusion. Electronically signed by: YINA LAWRENCE MD (09/20/2020 5:43 AM) [facility]
--- NOTE | 2020-09-20 05:48 | EKG ---
[facility] [address] [place] [address] Test Date: 2020-09-20 Test Time: 05:12:22 Pat Name: CLIVE NUNEZ Department: Room: Gender: F Shoe Treer: : 1955 Requested By: LUCILLE SIMPSON Order Number: [id number] Reading MD: Measurements Intervals [place] Rate: 115 P: -2 ME: 156 QRS: 44 QRSD: 132 T: 92 QT: 344 QTc: 478 Interpretive Statements SINUS TACHYCARDIA COMPLEX(ES) WITH ABERRANT INTRAVENTRICULAR CONDUCTION NON SPECIFIC INTRAVENTRICULAR BLOCK ABNORMAL ECG RI6.01 No previous ECG available for comparison
[2020-09-20] MEDS ORDERED: AZITHRMYCN 500MG IVPB FOR OMNI 250 ML IV ONE (06:00)
[2020-09-20] MEDS ORDERED: cefTRIAXone IV Push 1 GM VIAL. IVP ONE (06:00)
[2020-09-20] MEDS ORDERED: DEXAMETHASONE SOD PHOS 4 MG/ML VIAL IVP ONE (06:00)
[2020-09-20] MEDS ORDERED: IV NORMAL SALINE 1000ML BAG 1,000 ML IV ONE (06:00)
[2020-09-20 06:07] LABS: BILIRUBIN,URINE MODERATE (NEG); CLARITY,URINE CLEAR; COLOR,URINE AMBER; NITRITE,URINE NEGATIVE (NEG); PH,URINE 5.5 (<5.0-8.0); PROTEIN,URINE 100 mg/dL (NEG-TRACE)
[2020-09-20 06:48] LABS: HYALINE CASTS, URINE FEW /HPF
[2020-09-20 06:49] LABS: AMORPHOUS SEDIMENT,UR PRESENT /HPF; BACTERIA,URINE 0 /HPF (0-FEW); RBC,URINE 0 /HPF (0-2)
[2020-09-20 07:56] LABS: % BANDS 2 % (0-9); % LYMPHS 3 % (24-48); % MONOS 2 % (0-10); % SEGS 93 % (35-66)
[2020-09-20 07:57] LABS: ANISOCYTOSIS SLIGHT; PLT ESTIMATE ADEQUATE (ADEQUATE)
[2020-09-20] MEDS ORDERED: OXYC10TA PO (10:14)
[2020-09-20 11:00] VITALS: BP 119/67
--- NOTE | 2020-09-20 11:22 | CONS ---
DATE OF CONSULTATION: 09/20/2020 I was asked to see this 65-year-old lady for acute respiratory failure. HISTORY OF PRESENT ILLNESS: She is a lifelong nonsmoker. She denies any history of lung disease. She has not felt well for the past few days. She has to had any shortness of breath, cough with sputum production and fever. She was brought to the Emergency Room, was placed on 100% nonrebreather mask now she is on 3 liters of oxygen via nasal cannula. She denies chest pain. PAST MEDICAL HISTORY: Cholecystectomy, hip replacement, tubal ligation, diabetes mellitus, hypertension, aortic valve replacement. ALLERGIES: No known drug allergies. MEDICATIONS: The patient was given dexamethasone and Rocephin in the Emergency Room. SOCIAL HISTORY: Pancreas and kidney transplant about 20 years ago She is a lifelong nonsmoker. FAMILY HISTORY: No history of lung disease. REVIEW OF SYSTEMS: As mentioned as above, other systems otherwise negative. PHYSICAL EXAMINATION: GENERAL: This is an obese lady. VITAL SIGNS: Her O2 saturation is on 3 liters of oxygen. His 97% on 3 liters of oxygen, respiratory rate 20, heart rate 100, blood pressure 146/56, temperature 100.3. HEENT: Normocephalic, atraumatic. CHEST INSPECTION: There are no accessory muscle use. ABDOMEN: Obese. EXTREMITIES: There is no cyanosis. NEUROLOGIC: Alert and oriented. LABORATORY DATA: I reviewed the following lab data: Chest x-ray shows cardiomegaly and bilateral infiltrate. Sodium 135, potassium 3.9, chloride 100, CO2 of 26, BUN 14, creatinine 1.1. BNP 0.237. Troponin 237. BNP 7674. WBC 33.1, hemoglobin 11.8, platelets 311. IMPRESSION: 1. Acute respiratory failure secondary to pneumonia, rule out COVID-19, acute respiratory failure, multifactorial in etiology including acute diastolic congestive heart failure, pneumonia, rule out COVID-19. 2. Abnormal chest x-ray. 3. Coronary artery disease, status post stent. 4. History of kidney and pancreas transplant. 5. Status post aortic valve replacement. 6. Diabetes mellitus. 7. Hypertension. 8. Obesity, probable obstructive sleep apnea-hypopnea syndrome. 9. Sleep study as an outpatient. PLAN AND RECOMMENDATIONS: 1. Titrate FiO2 to keep O2 saturation 92%. 2. Continue Rocephin and doxycycline. 3. Continue steroids. 4. Follow up COVID-19 testing. 5. Cardiology is consulted. 6. The patient has history of kidney and pancreas transplant, needs to be restarted on her immunosuppressive medication per primary. 7. Titrate FiO2 to keep O2 saturation 92%. 8. Protonix for stress ulcer prophylaxis. 9. Lovenox for DVT prophylaxis. 10. The findings and recommendations were discussed with RN and the patient. Thank you very much for allowing me to participate in care of this very nice lady. CRUZ FAUST M.D. DR: NISHANT/gladys JOB#: [id number] / [id number]
[2020-09-20 11:23] VITALS: BP 119/65
[2020-09-20] MEDS: ENOXAPARIN 40 MG/0.4 ML SYRINGE. SQ SCH ×2 (12:00→12:06)
[2020-09-20] MEDS: PANTOPRAZOLE 40 MG TABLET.DR. PO SCH (12:06)
[2020-09-20] MEDS ORDERED: SITA50TA PO (12:17)
[2020-09-20] MEDS ORDERED: OMEP40CA7 PO (12:17)
[2020-09-20] MEDS ORDERED: METF500T16 PO (12:17)
[2020-09-20] MEDS ORDERED: LINZESS290 MCG PO (12:17)
[2020-09-20] MEDS ORDERED: METH150T PO (12:17)
[2020-09-20] MEDS ORDERED: AMLO-187 PO (12:17)
[2020-09-20] MEDS ORDERED: NON FORMULARY ITEM (Linaclotide (Linzess) 145 MCG) PO PRN (12:30)
[2020-09-20] MEDS ORDERED: TEMAZEPAM 15 MG CAPSULE PO PRN (12:30)
--- NOTE | 2020-09-20 12:50 | HP ---
ADMIT DATE: 09/20/2020 CHIEF COMPLAINT: Shortness of breath and cough. HISTORY OF PRESENT ILLNESS: The patient is a pleasant 65-year-old retired [employer]. She is blind now. She presents to the ER with shortness of breath, rated at 7/10. It has been occurring for about a week, worse with moving, better with sitting still, described as very agonizing. She increased her home meds, but that did not work. While in the ER, she is noted to have pneumonia on chest x-ray. We were concerned she could have COVID-19. I discussed the case with ER physician. We are going to admit the patient and consult Pulmonary Medicine. PAST MEDICAL HISTORY: Diabetes, hypertension, cholecystectomy, hip replacement, tubal ligation, aortic valve replacement, right hip surgery, kidney and pancreas transplants. ALLERGIES: None. FAMILY HISTORY: Diabetes. 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 MEDICATIONS: Reviewed, please refer to the MRAD. REVIEW OF SYSTEMS: GENERAL: No history of weight change, weakness or fevers. SKIN: No bruising, hair changes or rashes. NOSE AND THROAT: No history of nosebleeds, hoarseness or sore throat. HEART: No history of palpitations, chest pain. LUNGS: She complains of shortness of breath and cough. GASTROINTESTINAL: Denies changes in appetite, nausea, vomiting, diarrhea or constipation. GENITOURINARY: No history of frequency, urgency, hesitancy or nocturia. NEUROLOGIC: Denies history of numbness, tingling, tremor or weakness. PSYCHIATRIC: No history of panic, anxiety or depression. ENDOCRINE: No history of heat or cold intolerance, polyuria or polydipsia. EXTREMITIES: Denies muscle weakness, joint pain, pain on walking or stiffness. PHYSICAL EXAMINATION: VITALS: Within normal limits and are stable. GENERAL: No apparent distress. Alert and oriented. HEENT: She is blind. MUSCULOSKELETAL: Well developed, well nourished, good range of motion ENDOCRINE: No thyromegaly was palpated LYMPHATICS: No cervical chain or axillary nodes were noted HEMATOPOIETIC: No bruising NECK: Supple, no JVD, no thyromegaly was noted. LUNGS: She has some fine crackles, greater on the right than the left. HEART: RRR, S1, S2 present. Peripheral pulses intact, no obvious murmurs were noted. ABDOMEN: Soft, nontender. Positive bowel sounds no organomegaly, normal bowel sounds. EXTREMITIES: Without any cyanosis, clubbing, or edema. Pedal pulses intact, Homans sign is negative. NEUROLOGIC: Normal speech, normal tone. A & O x3, moves all extremities, no obvious focal deficits. PSYCHIATRIC: Normal affect, normal mood. Stable. SKIN: No ulcerations or rashes, good skin turgor, no jaundice. VASCULAR: Good capillary refill, neurovascular bundle appears to be intact. LABORATORY DATA: White count 33, hemoglobin 11.8, platelets 311. Electrolytes: Sodium 135, creatinine 1.1. Other lytes are normal. Glucose is 202. Troponin 0.237. BNP 7674. ASSESSMENT AND PLAN: Pneumonia and acute on chronic systolic and diastolic heart failure and severe leukocytosis. The patient has been admitted. We will consult Pulmonary, consult Cardiology. IV antibiotics, respiratory isolation, COVID-19 swab, O2 per nasal cannula, IV Rocephin and doxycycline, IV steroids. We will continue her immunosuppressive therapy. LONG-TERM PROGNOSIS: Guarded. CC TIME: 31 minutes. GULSHAN MAYNARD DO DR: REYNOLD/gladys JOB#: [id number] / [id number]
[2020-09-20] MEDS: MYCOPHENOLATE MOFETIL 250 MG CAPSULE. PO SCH ×2 (13:00→13:01)
[2020-09-20] MEDS: METOPROLOL SUCC 24HR ER 25 MG TAB.ER.24H. PO SCH (13:00)
[2020-09-20] MEDS ORDERED: PANTOPRAZOLE 40 MG TABLET.DR. PO SCH (13:00)
[2020-09-20] MEDS: LINAGLIPTIN 5 MG TABLET PO SCH (13:01)
[2020-09-20] MEDS: TACROLIMUS 0.5 MG CAPSULE. PO SCH ×2 (13:01→20:24)
[2020-09-20] MEDS: PRASUGREL 10 MG TABLET. PO SCH (13:01)
[2020-09-20] MEDS: GABAPENTIN 300 MG CAPSULE. PO SCH ×2 (13:01→20:24)
[2020-09-20] MEDS: ASPIRIN ENTERIC COATED 81 MG TABLET.DR. PO SCH (13:01)
[2020-09-20 15:00] VITALS: BP 114/58
[2020-09-20 15:17] VITALS: BP 115/61
[2020-09-20] MEDS: metFORMIN 500 MG TABLET PO SCH (16:48)
[2020-09-20] MEDS: LUBIPROSTONE 24 MCG CAPSULE PO SCH (16:48)
--- NOTE | 2020-09-20 17:02 | PDOC2 ---
CONSULT Date of Consult Date of Consult DATE: 09/20/20 TIME: 16:54 Reason for Consult Reason for Consult: History of coronary artery disease and slight troponin elevation Referring Physician Referring Physician: Dr. Sethi Identification/Chief Complaint Chief Complaint Shortness of breath Source Source: Chart review, Patient History of Present Illness Reason for Visit: 65-year-old female presented with progressive shortness of breath and fever. She was diagnosed with Covid pneumonia and admitted for further management. She has history of coronary disease but denied any chest pain, palpitations or syncope. Her troponin level was slightly elevated prompting cardiology consul tation. Past Medical History Cardiovascular: CAD, HTN, Aortic stenosis (s/p TAVR) Pulmonary: COPD Heme/Onc: Cancer Hepatobiliary: No pertinent hx Psych: No pertinent hx Musculoskeletal: low back pain, Weakness, Other Infectious disease: No pertinent hx Renal/: Other Endocrine: Other Past Surgical History Past Surgical History: Total hip replacement, Total knee replacement Family History Family History: No Significant Social History ALCOHOL: none Drugs: None Lives: with Family Current Problem List Problem List Problems Medical Problems: (1) Person under investigation for COVID-19 Status: Acute (2) Pneumonia Status: Acute Current Medications Current Medications Current Medications Acetaminophen (Tylenol) 650 mg 1X ONCE PO Last administered on 09/20/20at 05:43; Start 09/20/20 at 05:30; Stop 09/20/20 at 05:31; Status DC Ceftriaxone Sodium (Rocephin) 1 gm 1X ONCE IVP Last administered on 09/20/20at 06:00; Start 09/20/20 at 06:00; Stop 09/20/20 at 06:01; Status DC Azithromycin 250 ml @ 250 mls/hr 1X ONCE IV Last administered on 09/20/20at 06:00; Start 09/20/20 at 06:00; Stop 09/20/20 at 06:59; Status DC Dexamethasone Sodium Phosphate (Decadron) 10 mg 1X ONCE IVP Last administered on 09/20/20at 06:00; Start 09/20/20 at 06:00; Stop 09/20/20 at 06:01; Status DC Ondansetron HCl (Zofran) 4 mg PRN Q8HRS PRN IV NAUSEA/VOMITING 1ST CHOICE; Start 09/20/20 at 05:45; Stop 09/21/20 at 05:44 Morphine Sulfate (Morphine Sulfate) 2 mg PRN Q2HR PRN IV SEVERE PAIN 7-10; Start 09/20/20 at 05:45; Stop 09/21/20 at 05:44 Sodium Chloride 1,000 ml @ 1,000 mls/hr 1X ONCE IV Last administered on 09/20/20at 06:00; Start 09/20/20 at 06:00; Stop 09/20/20 at 06:59; Status DC Ceftriaxone Sodium (Rocephin) 1 gm Q24H IVP ; Start 09/21/20 at 09:00 Doxycycline Hyclate (Vibra-Tab) 100 mg BID PO ; Start 09/20/20 at 21:00 Enoxaparin Sodium (Lovenox 40mg Syringe) 40 mg Q24H SQ ; Start 09/20/20 at 12:00 Pantoprazole Sodium (Protonix) 40 mg DAILYAC PO Last administered on 09/20/20at 12:06; Start 09/20/20 at 12:00 Amlodipine Besylate (Norvasc) 10 mg DAILY PO Last administered on 09/20/20at 13:02; Start 09/20/20 at 13:00 Aspirin (Ecotrin) 81 mg DAILY PO Last administered on 09/20/20at 13:01; Start 09/20/20 at 13:00 Atorvastatin Calcium (Lipitor) 20 mg HS PO ; Start 09/20/20 at 21:00 Vitamin D (Vitamin D3) 500 unit DAILY PO ; Start 09/21/20 at 09:00 Cyanocobalamin (Vitamin B-12) 500 mcg DAILY PO ; Start 09/21/20 at 09:00 Gabapentin (Neurontin) 300 mg DAILY08 PO Last administered on 09/20/20at 13:01; Start 09/20/20 at 13:00 Losartan Potassium (Cozaar) 50 mg HS PO ; Start 09/20/20 at 21:00 Metformin HCl (Glucophage) 500 mg BIDWMEALS PO Last administered on 09/20/20at 16:48; Start 09/20/20 at 17:00 Metoprolol Succinate (Toprol Xl) 25 mg DAILY PO ; Start 09/20/20 at 13:00 Oxycodone/ Acetaminophen (Percocet 7.5/ 325) 1 tab PRN Q6HRS PRN PO PAIN; Start 09/20/20 at 12:30 Prasugrel (Effient) 10 mg DAILY PO Last administered on 09/20/20at 13:01; Start 09/20/20 at 13:00 Temazepam (Restoril) 15 mg HS PRN PO INSOMNIA; Start 09/20/20 at 12:30 Gabapentin (Neurontin) 600 mg HS PO ; Start 09/20/20 at 21:00 Non-Formulary Medication (Linaclotide (Linzess)) 145 mcg BID PRN PO CONSTIPATION; Start 09/20/20 at 12:30; Status UNV Lubiprostone (Amitiza) 24 mcg BIDWMEALS PO Last administered on 09/20/20at 16:48; Start 09/20/20 at 17:00 Magnesium Oxide (Magnesium Oxide) 1,000 mg DAILY PO ; Start 09/21/20 at 09:00 Non-Formulary Medication (Methylnaltrexone [place] (Relistor)) 150 mg BID PO ; Start 09/20/20 at 21:00; Status UNV Mycophenolate Mofetil (Cellcept) 500 mg BID PO ; Start 09/20/20 at 13:00; Stop 09/20/20 at 13:24; Status DC Pantoprazole Sodium (Protonix) 40 mg DAILYAC PO ; Start 09/20/20 at 13:00; Status Cancel Linagliptin (Tradjenta) 5 mg DAILY PO Last administered on 09/20/20at 13:01; Start 09/20/20 at 13:00 Tacrolimus (Prograf) 2 mg BID PO Last administered on 09/20/20at 13:01; Start 09/20/20 at 13:00 Active Scripts Active Reported Omeprazole 40 Mg Capsule. 1 Cap PO DAILY Amlodipine Besylate 10 Mg Tablet 10 Mg PO DAILY Metformin Hcl 500 Mg Tablet 500 Mg PO BIDWMEALS Januvia (Sitagliptin Phosphate) 50 Mg Tablet 1 Tab PO DAILY Linzess (Linaclotide) 290 Mcg Capsule 290 Mcg PO DAILY07 Relistor (Methylnaltrexone [place]) 150 Mg Tablet 150 Mg PO BID Oxycodone Hcl Immed.release (Oxycodone Hcl) 10 Mg Tablet 1 PO PRN Q4HRS PRN Aspirin Ec (Aspirin) 81 Mg Tablet. 1 Tab PO DAILY Metoprolol Succinate ( Xl ) (Metoprolol Succinate) 25 Mg Tab.er.24h 1 Tab PO DAILY Effient (Prasugrel Hcl) 10 Mg Tablet 1 Tab PO DAILY Atorvastatin Calcium 20 Mg Tablet 20 Mg PO HS Gabapentin 600 Mg Tablet 600 Mg PO HS Percocet 7.5-325 Mg Tablet (Oxycodone/Acetaminophen) 1 Each Tablet 1 Tab PO PRN Q6HRS PRN Temazepam 15 Mg Capsule 15 Mg PO HS PRN Vitamin D3 (Cholecalciferol (Vitamin D3)) 1,000 Unit Tablet 500 Unit PO DAILY Vitamin B-12 (Cyanocobalamin (Vitamin B-12)) 1,000 Mcg Tablet 500 Mcg PO DAILY Magnesium (Magnesium Oxide) 400 Mg Capsule 1,000 Mg PO DAILY Linzess (Linaclotide) 145 Mcg Capsule 145 Mcg PO BID PRN Gabapentin (Gabapentin) 300 Mg Capsule 300 Mg PO DAILY08 Cozaar (Losartan Potassium) 50 Mg Tablet 50 Mg PO HS Prograf (Tacrolimus) 1 Mg Capsule 2 Cap PO BID Cellcept (Mycophenolate Mofetil) 500 Mg Tablet 1 Tab PO BID Allergies Allergies: Coded Allergies: No Known Drug Allergies (Unverified , 11/15/16) ROS PSYCHOLOGICAL ROS: No: Hallucinations Eyes: No Loss of vision HEENT: No: Epistaxis Respiratory: YES: Cough, Shortness of breath; No: Hemoptysis Cardiovascular: No Chest Pain Gastrointestinal: No Vomiting, No Diarrhea Genitourinary: No Hematuria Neurological: No Seizures Skin: No Rash Physical Exam General: Alert, No acute distress Lungs: Clear to auscultation Heart: Regular rate, Other (ESM aortic) Abdomen: Soft Extremities: No edema Neuro: Normal speech Psych/Mental Status: Mood NL Vitals VITALS Vital Signs Date Time Temp Pulse Resp B/P (MAP) Pulse Ox O2 Delivery O2 Flow Rate FiO2 09/20/20 15:17 95.9 81 18 115/61 (79) 98 Nasal Cannula 3.0 95.9 Labs Labs Laboratory Tests Test 09/20/20 05:10 09/20/20 05:55 09/20/20 11:38 White Blood Count 33.1 x10^3/uL (4.0-11.0) Red Blood Count 4.39 x10^6/uL (3.50-5.40) Hemoglobin 11.8 g/dL (12.0-15.5) Hematocrit 37.0 % (36.0-47.0) Mean Corpuscular Volume 84 fL (79-100) Mean Corpuscular Hemoglobin 27 pg (25-35) Mean Corpuscular Hemoglobin Concent 32 g/dL (31-37) Red Cell Distribution Width 17.6 % (11.5-14.5) Platelet Count 311 x10^3/uL (140-400) Neutrophils (%) (Auto) 94 % (31-73) Lymphocytes (%) (Auto) 3 % (24-48) Monocytes (%) (Auto) 2 % (0-9) Eosinophils (%) (Auto) 0 % (0-3) Basophils (%) (Auto) 0 % (0-3) Neutrophils # (Auto) 31.1 x10^3/uL (1.8-7.7) Lymphocytes # (Auto) 1.0 x10^3/uL (1.0-4.8) Monocytes # (Auto) 0.8 x10^3/uL (0.0-1.1) Eosinophils # (Auto) 0.1 x10^3/uL (0.0-0.7) Basophils # (Auto) 0.1 x10^3/uL (0.0-0.2) Segmented Neutrophils % 93 % (35-66) Band Neutrophils % 2 % (0-9) Lymphocytes % 3 % (24-48) Monocytes % 2 % (0-10) Platelet Estimate Adequate (ADEQUATE) Anisocytosis Slight Sodium Level 135 mmol/L (136-145) Potassium Level 3.9 mmol/L (3.5-5.1) Chloride Level 100 mmol/L (98-107) Carbon Dioxide Level 26 mmol/L (21-32) Anion Gap 9 (6-14) Blood Urea Nitrogen 14 mg/dL (7-20) Creatinine 1.1 mg/dL (0.6-1.0) Estimated GFR (Cockcroft-Gault) 50.0 BUN/Creatinine Ratio 13 (6-20) Glucose Level 203 mg/dL (70-99) Lactic Acid Level 1.8 mmol/L (0.4-2.0) Calcium Level 9.2 mg/dL (8.5-10.1) Total Bilirubin 0.9 mg/dL (0.2-1.0) Aspartate Amino Transf (AST/SGOT) 17 U/L (15-37) Alanine Aminotransferase (ALT/SGPT) 17 U/L (14-59) Alkaline Phosphatase 105 U/L (46-116) Troponin I Quantitative 0.237 ng/mL (0.000-0.055) 1.101 ng/mL (0.000-0.055) KJ-Qto-I-Type Natriuretic Peptide 7674 pg/mL (0-124) Total Protein 6.5 g/dL (6.4-8.2) Albumin 3.0 g/dL (3.4-5.0) Albumin/Globulin Ratio 0.9 (1.0-1.7) Urine Collection Type Unknown Urine Color Summer Urine Clarity Clear Urine pH 5.5 (<5.0-8.0) Urine Specific [place] 1.020 (1.000-1.030) Urine Protein 100 mg/dL (NEG-TRACE) Urine Glucose (UA) 100 mg/dL (NEG) Urine Ketones (Stick) 15 mg/dL (NEG) Urine Blood Negative (NEG) Urine Nitrite Negative (NEG) Urine Bilirubin Moderate (NEG) Urine Urobilinogen Dipstick 1.0 mg/dL (0.2 mg/dL) Urine Leukocyte Esterase Small (NEG) Urine RBC 0 /HPF (0-2) Urine WBC 5-10 /HPF (0-4) Urine Squamous Epithelial Cells Few /LPF Urine Amorphous Sediment Present /HPF Urine Bacteria 0 /HPF (0-FEW) Urine Hyaline Casts Few /HPF Urine Mucus Mod /LPF Laboratory Tests Test 09/20/20 05:10 09/20/20 05:55 09/20/20 11:38 White Blood Count 33.1 x10^3/uL (4.0-11.0) Red Blood Count 4.39 x10^6/uL (3.50-5.40) Hemoglobin 11.8 g/dL (12.0-15.5) Hematocrit 37.0 % (36.0-47.0) Mean Corpuscular Volume 84 fL (79-100) Mean Corpuscular Hemoglobin 27 pg (25-35) Mean Corpuscular Hemoglobin Concent 32 g/dL (31-37) Red Cell Distribution Width 17.6 % (11.5-14.5) Platelet Count 311 x10^3/uL (140-400) Neutrophils (%) (Auto) 94 % (31-73) Lymphocytes (%) (Auto) 3 % (24-48) Monocytes (%) (Auto) 2 % (0-9) Eosinophils (%) (Auto) 0 % (0-3) Basophils (%) (Auto) 0 % (0-3) Neutrophils # (Auto) 31.1 x10^3/uL (1.8-7.7) Lymphocytes # (Auto) 1.0 x10^3/uL (1.0-4.8) Monocytes # (Auto) 0.8 x10^3/uL (0.0-1.1) Eosinophils # (Auto) 0.1 x10^3/uL (0.0-0.7) Basophils # (Auto) 0.1 x10^3/uL (0.0-0.2) Segmented Neutrophils % 93 % (35-66) Band Neutrophils % 2 % (0-9) Lymphocytes % 3 % (24-48) Monocytes % 2 % (0-10) Platelet Estimate Adequate (ADEQUATE) Anisocytosis Slight Sodium Level 135 mmol/L (136-145) Potassium Level 3.9 mmol/L (3.5-5.1) Chloride Level 100 mmol/L (98-107) Carbon Dioxide Level 26 mmol/L (21-32) Anion Gap 9 (6-14) Blood Urea Nitrogen 14 mg/dL (7-20) Creatinine 1.1 mg/dL (0.6-1.0) Estimated GFR (Cockcroft-Gault) 50.0 BUN/Creatinine Ratio 13 (6-20) Glucose Level 203 mg/dL (70-99) Lactic Acid Level 1.8 mmol/L (0.4-2.0) Calcium Level 9.2 mg/dL (8.5-10.1) Total Bilirubin 0.9 mg/dL (0.2-1.0) Aspartate Amino Transf (AST/SGOT) 17 U/L (15-37) Alanine Aminotransferase (ALT/SGPT) 17 U/L (14-59) Alkaline Phosphatase 105 U/L (46-116) Troponin I Quantitative 0.237 ng/mL (0.000-0.055) 1.101 ng/mL (0.000-0.055) GK-Ovi-O-Type Natriuretic Peptide 7674 pg/mL (0-124) Total Protein 6.5 g/dL (6.4-8.2) Albumin 3.0 g/dL (3.4-5.0) Albumin/Globulin Ratio 0.9 (1.0-1.7) Urine Collection Type Unknown Urine Color Summer Urine Clarity Clear Urine pH 5.5 (<5.0-8.0) Urine Specific [place] 1.020 (1.000-1.030) Urine Protein 100 mg/dL (NEG-TRACE) Urine Glucose (UA) 100 mg/dL (NEG) Urine Ketones (Stick) 15 mg/dL (NEG) Urine Blood Negative (NEG) Urine Nitrite Negative (NEG) Urine Bilirubin Moderate (NEG) Urine Urobilinogen Dipstick 1.0 mg/dL (0.2 mg/dL) Urine Leukocyte Esterase Small (NEG) Urine RBC 0 /HPF (0-2) Urine WBC 5-10 /HPF (0-4) Urine Squamous Epithelial Cells Few /LPF Urine Amorphous Sediment Present /HPF Urine Bacteria 0 /HPF (0-FEW) Urine Hyaline Casts Few /HPF Urine Mucus Mod /LPF Assessment/Plan Assessment/Plan 1. Covid pneumonia: Treat per IM and pulmonary teams. 2. Slight troponin elevation, most probably type II non-STEMI/demand ischemia. Patient is currently chest pain-free. Plan for ischemic evaluation as an outpatient. 3. Coronary artery disease s/p PCI/JOSE to LMCA/LAD/LCx with Impella hemodynamic support in March 2017. Continue current secondary prevention measures. 4. Severe aortic stenosis s/p TAVR with 2D echo in June 2019 showing normally functioning bioprosthetic AVR with LVEF 50 to 55%. 5. Elevated BNP level without any clinical evidence for fluid overload, probably secondary to pneumonia. 6. Hypertension: Controlled 7. Hyperlipidemia: Continue statin therapy 8. Diabetes mellitus type 2: Treat per IM Thank you for your consultation ADIS PAINTING MD Sep 20, 2020 17:02
[2020-09-20] MEDS: oxyCODONE/APAP 7.5/325 1 TAB TABLET PO PRN (18:52)
[2020-09-20 19:20] VITALS: BP 124/59
[2020-09-20] MEDS: LOSARTAN POTASSIUM 50 MG TABLET. PO SCH ×2 (20:23→21:00)
[2020-09-20] MEDS: ATORVASTATIN CALCIUM 20 MG TABLET PO SCH ×2 (20:24→21:00)
[2020-09-20] MEDS: DOXYCYCLINE HYCLATE 100 MG TABLET PO SCH (20:24)
[2020-09-20] MEDS ORDERED: NON FORMULARY ITEM (Methylnaltrexone Bromide (Relistor) 150 MG) PO SCH (21:00)
[2020-09-20 23:00] VITALS: BP 126/60
--- NOTE | 2020-09-21 00:16 | NUR ---
Call to Dr SANDERS regarding patients complaint of not being able to urinate post straight cath in ER. Bladder scan showed 200cc. Straight cath patient 200cc of dark tea urine. will continue to monitor.
[2020-09-21] MEDS: oxyCODONE/APAP 7.5/325 1 TAB TABLET PO PRN ×3 (01:23→21:27)
[2020-09-21 03:00] VITALS: BP 115/58
[2020-09-21 07:00] VITALS: BP 120/60
[2020-09-21] MEDS: LUBIPROSTONE 24 MCG CAPSULE PO SCH ×3 (08:00→16:51)
[2020-09-21] MEDS: LINAGLIPTIN 5 MG TABLET PO SCH ×2 (09:00→10:02)
[2020-09-21] MEDS: METOPROLOL SUCC 24HR ER 25 MG TAB.ER.24H. PO SCH ×2 (09:00→09:59)
--- NOTE | 2020-09-21 09:49 | PDOC ---
PULMONARY PROGRESS NOTES DATE: 09/21/20 TIME: 09:48 Subjective on ra denies sob cough Vitals Vital Signs Date Time Temp Pulse Resp B/P (MAP) Pulse Ox O2 Delivery O2 Flow Rate FiO2 09/21/20 07:00 96.5 93 18 120/60 (80) 94 Room Air 96.5 09/20/20 15:17 3.0 Comments on ra alert no distress no accesory muscle use abd obese no rash Labs Laboratory Tests Test 09/20/20 05:10 09/20/20 05:55 09/20/20 11:38 09/20/20 17:45 White Blood Count 33.1 x10^3/uL (4.0-11.0) Red Blood Count 4.39 x10^6/uL (3.50-5.40) Hemoglobin 11.8 g/dL (12.0-15.5) Hematocrit 37.0 % (36.0-47.0) Mean Corpuscular Volume 84 fL (79-100) Mean Corpuscular Hemoglobin 27 pg (25-35) Mean Corpuscular Hemoglobin Concent 32 g/dL (31-37) Red Cell Distribution Width 17.6 % (11.5-14.5) Platelet Count 311 x10^3/uL (140-400) Neutrophils (%) (Auto) 94 % (31-73) Lymphocytes (%) (Auto) 3 % (24-48) Monocytes (%) (Auto) 2 % (0-9) Eosinophils (%) (Auto) 0 % (0-3) Basophils (%) (Auto) 0 % (0-3) Neutrophils # (Auto) 31.1 x10^3/uL (1.8-7.7) Lymphocytes # (Auto) 1.0 x10^3/uL (1.0-4.8) Monocytes # (Auto) 0.8 x10^3/uL (0.0-1.1) Eosinophils # (Auto) 0.1 x10^3/uL (0.0-0.7) Basophils # (Auto) 0.1 x10^3/uL (0.0-0.2) Segmented Neutrophils % 93 % (35-66) Band Neutrophils % 2 % (0-9) Lymphocytes % 3 % (24-48) Monocytes % 2 % (0-10) Platelet Estimate Adequate (ADEQUATE) Anisocytosis Slight Sodium Level 135 mmol/L (136-145) Potassium Level 3.9 mmol/L (3.5-5.1) Chloride Level 100 mmol/L (98-107) Carbon Dioxide Level 26 mmol/L (21-32) Anion Gap 9 (6-14) Blood Urea Nitrogen 14 mg/dL (7-20) Creatinine 1.1 mg/dL (0.6-1.0) Estimated GFR (Cockcroft-Gault) 50.0 BUN/Creatinine Ratio 13 (6-20) Glucose Level 203 mg/dL (70-99) Lactic Acid Level 1.8 mmol/L (0.4-2.0) Calcium Level 9.2 mg/dL (8.5-10.1) Total Bilirubin 0.9 mg/dL (0.2-1.0) Aspartate Amino Transf (AST/SGOT) 17 U/L (15-37) Alanine Aminotransferase (ALT/SGPT) 17 U/L (14-59) Alkaline Phosphatase 105 U/L (46-116) Troponin I Quantitative 0.237 ng/mL (0.000-0.055) 1.101 ng/mL (0.000-0.055) 0.926 ng/mL (0.000-0.055) BY-Xzn-P-Type Natriuretic Peptide 7674 pg/mL (0-124) Total Protein 6.5 g/dL (6.4-8.2) Albumin 3.0 g/dL (3.4-5.0) Albumin/Globulin Ratio 0.9 (1.0-1.7) Urine Collection Type Unknown Urine Color Summer Urine Clarity Clear Urine pH 5.5 (<5.0-8.0) Urine Specific [place] 1.020 (1.000-1.030) Urine Protein 100 mg/dL (NEG-TRACE) Urine Glucose (UA) 100 mg/dL (NEG) Urine Ketones (Stick) 15 mg/dL (NEG) Urine Blood Negative (NEG) Urine Nitrite Negative (NEG) Urine Bilirubin Moderate (NEG) Urine Urobilinogen Dipstick 1.0 mg/dL (0.2 mg/dL) Urine Leukocyte Esterase Small (NEG) Urine RBC 0 /HPF (0-2) Urine WBC 5-10 /HPF (0-4) Urine Squamous Epithelial Cells Few /LPF Urine Amorphous Sediment Present /HPF Urine Bacteria 0 /HPF (0-FEW) Urine Hyaline Casts Few /HPF Urine Mucus Mod /LPF Laboratory Tests Test 09/20/20 11:38 09/20/20 17:45 Troponin I Quantitative 1.101 ng/mL (0.000-0.055) 0.926 ng/mL (0.000-0.055) Medications Active Scripts Medications Dose Route/Sig Max Daily Dose Days Date Category Omeprazole 40 Mg Capsule.dr 1 Cap PO DAILY 09/20/20 Reported Amlodipine Besylate 10 Mg Tablet 10 Mg PO DAILY 09/20/20 Reported Metformin Hcl 500 Mg Tablet 500 Mg PO BIDWMEALS 09/20/20 Reported Januvia (Sitagliptin Phosphate) 50 Mg Tablet 1 Tab PO DAILY 09/20/20 Reported Linzess (Linaclotide) 290 Mcg Capsule 290 Mcg PO DAILY07 09/20/20 Reported Relistor (Methylnaltrexone [place]) 150 Mg Tablet 150 Mg PO BID 09/20/20 Reported Oxycodone Hcl Immed.release (Oxycodone Hcl) 10 Mg Tablet 1 PO PRN Q4HRS PRN 09/20/20 Reported Aspirin Ec (Aspirin) 81 Mg Tablet.dr 1 Tab PO DAILY 04/08/17 Reported Metoprolol Succinate ( Xl ) (Metoprolol Succinate) 25 Mg Tab.er.24h 1 Tab PO DAILY 04/08/17 Reported Effient (Prasugrel Hcl) 10 Mg Tablet 1 Tab PO DAILY 04/08/17 Reported Atorvastatin Calcium 20 Mg Tablet 20 Mg PO HS 04/08/17 Reported Gabapentin 600 Mg Tablet 600 Mg PO HS 04/05/17 Reported Percocet 7.5-325 Mg Tablet (Oxycodone/Acetaminophen) 1 Each Tablet 1 Tab PO PRN Q6HRS PRN 04/05/17 Reported Temazepam 15 Mg Capsule 15 Mg PO HS PRN 04/05/17 Reported Vitamin D3 (Cholecalciferol (Vitamin D3)) 1,000 Unit Tablet 500 Unit PO DAILY 04/05/17 Reported Vitamin B-12 (Cyanocobalamin (Vitamin B-12)) 1,000 Mcg Tablet 500 Mcg PO DAILY 04/05/17 Reported Magnesium (Magnesium Oxide) 400 Mg Capsule 1,000 Mg PO DAILY 04/05/17 Reported Linzess (Linaclotide) 145 Mcg Capsule 145 Mcg PO BID PRN 04/05/17 Reported Gabapentin (Gabapentin) 300 Mg Capsule 300 Mg PO DAILY08 04/05/17 Reported Cozaar (Losartan Potassium) 50 Mg Tablet 50 Mg PO HS 04/05/17 Reported Prograf (Tacrolimus) 1 Mg Capsule 2 Cap PO BID 04/05/17 Reported Cellcept (Mycophenolate Mofetil) 500 Mg Tablet 1 Tab PO BID 04/05/17 Reported Impression . IMPRESSION: 1. Acute respiratory failure secondary to pneumonia, rule out COVID-19, acute respiratory failure, multifactorial in etiology including acute diastolic congestive heart failure, pneumonia, rule out COVID-19. 2. Abnormal chest x-ray. 3. Coronary artery disease, status post stent. 4. History of kidney and pancreas transplant. 5. Status post aortic valve replacement. 6. Diabetes mellitus. 7. Hypertension. 8. Obesity, probable obstructive sleep apnea-hypopnea syndrome. 9. Sleep study as an outpatient. Plan . PLAN AND RECOMMENDATIONS: 1. Titrate FiO2 to keep O2 saturation 92%. 2. Continue Rocephin and doxycycline. 3. Lovenox for DVT prophylaxis 4. Follow up COVID-19 testing. 5. follow Cardiology rec 6. ? The patient has history of kidney and pancreas transplant, needs to be restarted on her immunosuppressive medication per primary. 7. Titrate FiO2 to keep O2 saturation 92%. 8. Protonix for stress ulcer prophylaxis. 9. fu covid19 testing The findings and recommendations were discussed with RN and the patient. CRUZ FAUST MD Sep 21, 2020 09:49
[2020-09-21] MEDS: TACROLIMUS 0.5 MG CAPSULE. PO SCH ×2 (09:55→21:24)
[2020-09-21] MEDS: metFORMIN 500 MG TABLET PO SCH ×2 (09:55→16:54)
[2020-09-21] MEDS: MAGNESIUM OXIDE 400 MG TABLET PO SCH (09:56)
[2020-09-21] MEDS: PRASUGREL 10 MG TABLET. PO SCH (09:57)
[2020-09-21] MEDS: CHOLECALCIFEROL (VITAMIN D3) 1,000 UNIT TABLET PO SCH (09:57)
[2020-09-21] MEDS: GABAPENTIN 300 MG CAPSULE. PO SCH ×2 (09:58→21:24)
[2020-09-21] MEDS: CYANOCOBALAMIN (VITAMIN B-12) 1,000 MCG TABLET. PO SCH (09:58)
[2020-09-21] MEDS: PANTOPRAZOLE 40 MG TABLET.DR. PO SCH (09:58)
[2020-09-21] MEDS: DOXYCYCLINE HYCLATE 100 MG TABLET PO SCH ×2 (09:59→21:24)
[2020-09-21] MEDS: ASPIRIN ENTERIC COATED 81 MG TABLET.DR. PO SCH (10:00)
[2020-09-21] MEDS: cefTRIAXone IV Push 1 GM VIAL. IVP SCH (10:01)
[2020-09-21 11:00] VITALS: BP 119/59
--- NOTE | 2020-09-21 11:06 | PDOC ---
[employer] PROGRESS NOTE Date of Service DOS: DATE: 09/21/20 TIME: 10:56 Chief Complaint Chief Complaint Pneumonia Dyspnea PUI Acute on chronic systolic and diastolic CHF History of Present Illness History of Present Illness 09/21/20 Pt seen and examined Patient is blind Pt communicating well and was not short of breath. Discussed awaiting covid test DWRN Chart reviewed Vitals/I&O Vitals/I&O: Vital Signs Date Time Temp Pulse Resp B/P (MAP) Pulse Ox O2 Delivery O2 Flow Rate FiO2 09/21/20 09:59 93 120/60 09/21/20 07:00 96.5 18 94 Room Air 96.5 09/20/20 15:17 3.0 I & O 09/20/20 09/20/20 09/21/20 15:00 23:00 07:00 Intake Total 200 ml 200 ml Output Total 200 ml Balance 200 ml 0 ml Physical Exam General: Alert, No acute distress Heart: Regular rate, Normal S1, Normal S2, Other (ESM aortic) Lungs: Crackles Abdomen: Soft Extremities: No cyanosis, No edema Skin: No rashes Labs Labs: Laboratory Tests Test 09/20/20 11:38 09/20/20 17:45 Troponin I Quantitative 1.101 ng/mL (0.000-0.055) 0.926 ng/mL (0.000-0.055) Review of Systems Review of Systems: Denies headache Denies numbness Assessment and Plan Assessmemt and Plan Problems Medical Problems: (1) NSTEMI (non-ST elevated myocardial infarction) Status: Acute (2) Person under investigation for COVID-19 Status: Acute (3) Pneumonia Status: Acute Pneumonia Dyspnea PUI Acute on chronic systolic and diastolic CHF Plan: Awaiting covid test results Respiratory isolation Continue IV rocephin and doxycylcline Continue IV steroids Continue treatment per pulmonary and cardiology Needs to restart immunosuppressive treatment per primary - s/p kidney and pancreas transplant Continue O2 supplementation as needed Home meds PT/OT Full code DVT prophylaxis IV protonix Comment Review of Relevant I have reviewed the following items alex (where applicable) has been applied. Medications: Current Medications Medications (Trade) Dose Ordered Sig/Sobia Route PRN Reason Start Time Stop Time Status Last Admin Dose Admin Ceftriaxone Sodium (Rocephin) 1 gm Q24H IVP 09/21/20 09:00 09/21/20 10:01 Doxycycline Hyclate (Vibra-Tab) 100 mg BID PO 09/20/20 21:00 09/21/20 09:59 Pantoprazole Sodium (Protonix) 40 mg DAILYAC PO 09/20/20 12:00 09/21/20 09:58 Amlodipine Besylate (Norvasc) 10 mg DAILY PO 09/20/20 13:00 09/21/20 09:57 Aspirin (Ecotrin) 81 mg DAILY PO 09/20/20 13:00 09/21/20 10:00 Vitamin D (Vitamin D3) 500 unit DAILY PO 09/21/20 09:00 09/21/20 09:57 Cyanocobalamin (Vitamin B-12) 500 mcg DAILY PO 09/21/20 09:00 09/21/20 09:58 Gabapentin (Neurontin) 300 mg DAILY08 PO 09/20/20 13:00 09/21/20 09:58 Metformin HCl (Glucophage) 500 mg BIDWMEALS PO 09/20/20 17:00 09/21/20 09:55 Metoprolol Succinate (Toprol Xl) 25 mg DAILY PO 09/20/20 13:00 09/21/20 09:59 Oxycodone/ Acetaminophen (Percocet 7.5/ 325) 1 tab PRN Q6HRS PRN PO PAIN 09/20/20 12:30 09/21/20 01:23 Prasugrel (Effient) 10 mg DAILY PO 09/20/20 13:00 09/21/20 09:57 Gabapentin (Neurontin) 600 mg HS PO 09/20/20 21:00 09/20/20 20:24 Lubiprostone (Amitiza) 24 mcg BIDWMEALS PO 09/20/20 17:00 09/21/20 09:55 Magnesium Oxide (Magnesium Oxide) 1,000 mg DAILY PO 09/21/20 09:00 09/21/20 09:56 Linagliptin (Tradjenta) 5 mg DAILY PO 09/20/20 13:00 09/21/20 10:02 Tacrolimus (Prograf) 2 mg BID PO 09/20/20 13:00 09/21/20 09:55 Justifications for Admission Other Justification GULSHAN MAYNARD III DO Sep 21, 2020 11:06
[2020-09-21] MEDS: ENOXAPARIN 40 MG/0.4 ML SYRINGE. SQ SCH (12:00)
--- NOTE | 2020-09-21 13:38 | PDOC ---
PROGRESS NOTES Date of Service: DATE: 09/21/20 TIME: 13:37 Subjective Subjective Comfortable, no new complaints Objective Objective Vital Signs Date Time Temp Pulse Resp B/P (MAP) Pulse Ox O2 Delivery O2 Flow Rate FiO2 09/21/20 11:00 96.5 91 18 119/59 (79) 91 Room Air 96.5 09/20/20 15:17 3.0 Intake and Output 09/21/20 07:00 Intake Total 400 ml Output Total 200 ml Balance 200 ml Intake Oral 400 ml Output Urine Total 200 ml Physical Exam Abdomen: Soft Heart: Regular rate, Normal S1, Normal S2, Other (ESM aortic) Extremities: No cyanosis, No edema General: Alert, No acute distress Lungs: Clear to auscultation MUSCULOSKELETAL: Abnormal exam of right Neuro: Normal speech Psych/Mental Status: Mood NL Skin: No rashes Assessment Assessment 1. Covid pneumonia: Treat per IM and pulmonary teams. 2. Slight troponin elevation, most probably type II non-STEMI/demand ischemia. Patient is currently chest pain-free. Plan for ischemic evaluation as an outpatient. 3. Coronary artery disease s/p PCI/JOSE to LMCA/LAD/LCx with Impella hemodynamic support in March 2017. Continue current secondary prevention measures. 4. Severe aortic stenosis s/p TAVR with 2D echo in June 2019 showing normally functioning bioprosthetic AVR with LVEF 50 to 55%. 5. Elevated BNP level without any clinical evidence for fluid overload, probably secondary to pneumonia. 6. Hypertension: Controlled 7. Hyperlipidemia: Continue statin therapy 8. Diabetes mellitus type 2: Treat per IM Plan Plan of Care Problems Medical Problems: (1) NSTEMI (non-ST elevated myocardial infarction) Status: Acute (2) Person under investigation for COVID-19 Status: Acute (3) Pneumonia Status: Acute Comment Review of Relevant I have reviewed the following items alex (where applicable) has been applied. Labs Laboratory Tests Test 09/20/20 17:45 Troponin I Quantitative 0.926 ng/mL (0.000-0.055) Microbiology 09/20/20 Urine Culture - Final, Complete Medications Current Medications Atorvastatin Calcium (Lipitor) 20 mg HS PO ; Start 09/20/20 at 21:00 Ceftriaxone Sodium (Rocephin) 1 gm Q24H IVP Last administered on 09/21/20at 10:01; Start 09/21/20 at 09:00 Cyanocobalamin (Vitamin B-12) 500 mcg DAILY PO Last administered on 09/21/20at 09:58; Start 09/21/20 at 09:00 Doxycycline Hyclate (Vibra-Tab) 100 mg BID PO Last administered on 09/21/20at 09:59; Start 09/20/20 at 21:00 Gabapentin (Neurontin) 600 mg HS PO Last administered on 09/20/20at 20:24; Start 09/20/20 at 21:00 Losartan Potassium (Cozaar) 50 mg HS PO ; Start 09/20/20 at 21:00 Lubiprostone (Amitiza) 24 mcg BIDWMEALS PO Last administered on 09/21/20 09:55; Start 09/20/20 at 17:00 Magnesium Oxide (Magnesium Oxide) 1,000 mg DAILY PO Last administered on 09/21/20at 09:56; Start 09/21/20 at 09:00 Metformin HCl (Glucophage) 500 mg BIDWMEALS PO Last administered on 09/21/20at 09:55; Start 09/20/20 at 17:00 Non-Formulary Medication (Methylnaltrexone [place] (Relistor)) 150 mg BID PO ; Start 09/20/20 at 21:00; Stop 09/21/20 at 09:55; Status DC Vitamin D (Vitamin D3) 500 unit DAILY PO Last administered on 09/21/20 09:57; Start 09/21/20 at 09:00 Vitals/I & O Vital Sign - Last 24 Hours 09/20/20 09/20/20 09/20/20 09/20/20 15:00 15:17 18:52 19:20 Temp 96.8 95.9 96.8 96.8 95.9 96.8 Pulse 74 81 84 Resp 20 18 18 18 B/P (MAP) 114/58 (76) 115/61 (79) 124/59 (80) Pulse Ox 95 98 95 95 O2 Delivery Room Air Nasal Cannula Room Air Room Air O2 Flow Rate 3.0 09/20/20 09/20/20 09/21/20 09/21/20 19:30 23:00 01:23 02:23 Temp 96.5 96.5 Pulse 89 Resp 20 20 20 B/P (MAP) 126/60 (82) Pulse Ox 95 O2 Delivery Room Air Room Air Room Air Room Air 09/21/20 09/21/20 09/21/20 09/21/20 03:00 07:00 08:15 09:57 Temp 96.5 96.5 96.5 96.5 Pulse 87 93 93 Resp 20 18 B/P (MAP) 115/58 (77) 120/60 (80) 120/60 Pulse Ox 94 94 O2 Delivery Room Air Room Air Room Air 09/21/20 09/21/20 09:59 11:00 Temp 96.5 96.5 Pulse 93 91 Resp 18 B/P (MAP) 120/60 119/59 (79) Pulse Ox 91 O2 Delivery Room Air Intake and Output 09/20/20 09/20/20 09/21/20 15:00 23:00 07:00 Intake Total 200 ml 200 ml Output Total 200 ml Balance 200 ml 0 ml ADIS PAINTING MD Sep 21, 2020 13:38
[2020-09-21 15:00] VITALS: BP 121/60
[2020-09-21 19:00] VITALS: BP 127/57
[2020-09-21] MEDS: LOSARTAN POTASSIUM 50 MG TABLET. PO SCH (21:00)
[2020-09-21] MEDS: ATORVASTATIN CALCIUM 20 MG TABLET PO SCH (21:00)
[2020-09-21 23:00] VITALS: BP 116/58
[2020-09-22 03:00] VITALS: BP 132/67
[2020-09-22] MEDS: oxyCODONE/APAP 7.5/325 1 TAB TABLET PO PRN (04:12)
[2020-09-22 07:00] VITALS: BP 127/67
[2020-09-22] MEDS: metFORMIN 500 MG TABLET PO SCH (08:10)
[2020-09-22] MEDS: GABAPENTIN 300 MG CAPSULE. PO SCH (08:10)
[2020-09-22] MEDS: ASPIRIN ENTERIC COATED 81 MG TABLET.DR. PO SCH (08:10)
[2020-09-22] MEDS: LUBIPROSTONE 24 MCG CAPSULE PO SCH (08:10)
[2020-09-22] MEDS: PANTOPRAZOLE 40 MG TABLET.DR. PO SCH (08:10)
[2020-09-22] MEDS: TACROLIMUS 0.5 MG CAPSULE. PO SCH (08:11)
[2020-09-22] MEDS: CHOLECALCIFEROL (VITAMIN D3) 1,000 UNIT TABLET PO SCH (08:11)
[2020-09-22] MEDS: CYANOCOBALAMIN (VITAMIN B-12) 1,000 MCG TABLET. PO SCH (08:12)
[2020-09-22] MEDS: PRASUGREL 10 MG TABLET. PO SCH (08:12)
[2020-09-22] MEDS: LINAGLIPTIN 5 MG TABLET PO SCH (08:12)
[2020-09-22] MEDS: MAGNESIUM OXIDE 400 MG TABLET PO SCH (08:12)
[2020-09-22] MEDS: DOXYCYCLINE HYCLATE 100 MG TABLET PO SCH (08:12)
[2020-09-22] MEDS: cefTRIAXone IV Push 1 GM VIAL. IVP SCH (08:13)
[2020-09-22] MEDS: ENOXAPARIN 40 MG/0.4 ML SYRINGE. SQ SCH (08:25)
[2020-09-22] MEDS: METOPROLOL SUCC 24HR ER 25 MG TAB.ER.24H. PO SCH (08:25)
--- NOTE | 2020-09-22 08:46 | PDOC ---
PULMONARY PROGRESS NOTES DATE: 09/22/20 TIME: 08:46 Subjective on ra denies sob cough Vitals Vital Signs Date Time Temp Pulse Resp B/P (MAP) Pulse Ox O2 Delivery O2 Flow Rate FiO2 09/22/20 08:25 88 127/67 09/22/20 07:00 97.6 18 98 Room Air 97.6 09/21/20 17:21 3.0 Comments on ra alert no distress no accesory muscle use abd obese no rash Lungs: Crackles Labs Laboratory Tests Test 09/20/20 11:38 09/20/20 17:45 Troponin I Quantitative 1.101 ng/mL (0.000-0.055) 0.926 ng/mL (0.000-0.055) Medications Active Scripts Medications Dose Route/Sig Max Daily Dose Days Date Category Omeprazole 40 Mg Capsule.dr [place] Cap PO DAILY 09/20/20 Reported Amlodipine Besylate 10 Mg Tablet 10 Mg PO DAILY 09/20/20 Reported Metformin Hcl 500 Mg Tablet 500 Mg PO BIDWMEALS 09/20/20 Reported Januvia (Sitagliptin Phosphate) 50 Mg Tablet 1 Tab PO DAILY 09/20/20 Reported Linzess (Linaclotide) 290 Mcg Capsule 290 Mcg PO DAILY07 09/20/20 Reported Relistor (Methylnaltrexone [place]) 150 Mg Tablet 150 Mg PO BID 09/20/20 Reported Oxycodone Hcl Immed.release (Oxycodone Hcl) 10 Mg Tablet 1 PO PRN Q4HRS PRN 09/20/20 Reported Aspirin Ec (Aspirin) 81 Mg Tablet. 1 Tab PO DAILY 04/08/17 Reported Metoprolol Succinate ( Xl ) (Metoprolol Succinate) 25 Mg Tab.er.24h 1 Tab PO DAILY 04/08/17 Reported Effient (Prasugrel Hcl) 10 Mg Tablet 1 Tab PO DAILY 04/08/17 Reported Atorvastatin Calcium 20 Mg Tablet 20 Mg PO HS 04/08/17 Reported Gabapentin 600 Mg Tablet 600 Mg PO HS 04/05/17 Reported Percocet 7.5-325 Mg Tablet (Oxycodone/Acetaminophen) 1 Each Tablet 1 Tab PO PRN Q6HRS PRN 04/05/17 Reported Temazepam 15 Mg Capsule 15 Mg PO HS PRN 04/05/17 Reported Vitamin D3 (Cholecalciferol (Vitamin D3)) 1,000 Unit Tablet 500 Unit PO DAILY 04/05/17 Reported Vitamin B-12 (Cyanocobalamin (Vitamin B-12)) 1,000 Mcg Tablet 500 Mcg PO DAILY 04/05/17 Reported Magnesium (Magnesium Oxide) 400 Mg Capsule 1,000 Mg PO DAILY 04/05/17 Reported Linzess (Linaclotide) 145 Mcg Capsule 145 Mcg PO BID PRN 04/05/17 Reported Gabapentin (Gabapentin) 300 Mg Capsule 300 Mg PO DAILY08 04/05/17 Reported Cozaar (Losartan Potassium) 50 Mg Tablet 50 Mg PO HS 04/05/17 Reported Prograf (Tacrolimus) 1 Mg Capsule 2 Cap PO BID 04/05/17 Reported Cellcept (Mycophenolate Mofetil) 500 Mg Tablet 1 Tab PO BID 04/05/17 Reported Impression . IMPRESSION: 1. Acute respiratory failure secondary to pneumonia, rule out COVID-19, acute respiratory failure, multifactorial in etiology including acute diastolic congestive heart failure, pneumonia, rule out COVID-19. 2. Abnormal chest x-ray. 3. Coronary artery disease, status post stent. 4. History of kidney and pancreas transplant. 5. Status post aortic valve replacement. 6. Diabetes mellitus. 7. Hypertension. 8. Obesity, probable obstructive sleep apnea-hypopnea syndrome. 9. Sleep study as an outpatient. Plan . PLAN AND RECOMMENDATIONS: 1. Titrate FiO2 to keep O2 saturation 92%. 2. Continue Rocephin and doxycycline. 3. Lovenox for DVT prophylaxis 4. Follow up COVID-19 testing. 5. follow Cardiology rec 6. ? The patient has history of kidney and pancreas transplant, needs to be restarted on her immunosuppressive medication per primary. 7. Titrate FiO2 to keep O2 saturation 92%. 8. Protonix for stress ulcer prophylaxis. 9. fu covid19 testing The findings and recommendations were discussed with RN and the patient. BOLA MOLINA MD Sep 22, 2020 08:46
[2020-09-22 11:00] VITALS: BP 132/58
[2020-09-22] MEDS ORDERED: DOXY100T PO (11:49)
--- NOTE | 2020-09-22 11:53 | PDOC3 ---
Discharge Summary Visit Information Date of Admission: Sep 20, 2020 Date of Discharge: Sep 22, 2020 Final Diagnosis 1. Acute respiratory failure secondary to pneumonia, rule out COVID-19, 2. acute diastolic congestive heart failure, NSTEMI 2, demand, due to pneumonia, 2. Abnormal chest x-ray. 3. Coronary artery disease, status post stent. PCI/JOSE to LMCA/LAD/LCx 4. History of kidney and pancreas transplant. 5. Status post aortic valve replacement, TAVR for severe stensosis, 6. Diabetes mellitus 1 7. Hypertension. Problems Medical Problems: (1) NSTEMI (non-ST elevated myocardial infarction) Status: Acute (2) Person under investigation for COVID-19 Status: Acute (3) Pneumonia Status: Acute Brief Hospital Course Allergies Allergies Coded Allergies Type Severity Reaction Last Updated Verified No Known Drug Allergies 11/15/16 No Vital Signs Vital Signs Date Time Temp Pulse Resp B/P (MAP) Pulse Ox O2 Delivery O2 Flow Rate FiO2 09/22/20 11:00 98.6 88 18 132/58 (82) 95 Room Air 98.6 09/22/20 08:00 3.0 Lab Results Laboratory Tests Test 09/20/20 17:45 Troponin I Quantitative 0.926 ng/mL (0.000-0.055) Brief Hospital Course 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 Louise on 10/04, this month Discharge Information Condition at Discharge: Improved Follow Up: Weeks Disposition/Orders: D/C to Home Scheduled Amlodipine Besylate (Amlodipine Besylate) 10 Mg Tablet, 10 MG PO DAILY for htn, (Reported) Entered as Reported by: ANIL HALL on 09/20/20 1217 Last Taken: Unknown Dose on 09/19/20 Last Action: Continued on 09/20/20 1223 by GULSHAN MAYNARD Aspirin (Aspirin Ec) 81 Mg Tablet., 1 TAB PO DAILY, #30 Ref 3 (Reported) Entered as Reported by: JOSÉ MIGUEL KAPOOR on 04/08/17 1335 Last Taken: Unknown Dose on 09/19/20 Last Action: Continued on 09/20/20 1223 by NIAL CASTLE Atorvastatin Calcium (Atorvastatin Calcium) 20 Mg Tablet, 20 MG PO HS for FOR CHOLESTEROL, #30 Ref 0 (Reported) Entered as Reported by: JOSÉ MIGUEL KAPOOR on 04/08/17 1317 Last Action: Continued on 09/20/20 1223 by NIAL CASTLE Cholecalciferol (Vitamin D3) (Vitamin D3) 1,000 Unit Tablet, 500 UNIT PO DAILY, (Reported) Entered as Reported by: KATH MONTES on 04/05/17725 Last Action: Continued on 09/20/20 1223 by NIAL CASTLE Cyanocobalamin (Vitamin B-12) (Vitamin B-12) 1,000 Mcg Tablet, 500 MCG PO DAILY, (Reported) Entered as Reported by: KATH MONTES on 04/05/17725 Last Action: Continued on 09/20/20 1223 by NIAL CASTLE Doxycycline Hyclate (Doxycycline Hyclate) 100 Mg Tablet, 100 MG PO BID for pneumonia, #14 Prescribed by: TOM MATHEW on 09/22/20 1149 Gabapentin (Gabapentin ) 300 Mg Capsule, 300 MG PO DAILY08, (Reported) Entered as Reported by: KATH MONTES on 04/05/17725 Last Taken: Unknown Dose on 09/19/20 Last Action: Continued on 09/20/20 1223 by NIAL CASTLE Gabapentin (Gabapentin) 600 Mg Tablet, 600 MG PO HS, (Reported) Entered as Reported by: Ade Marrufo on 04/05/17 1338 Last Taken: Unknown Dose on 09/19/20 Last Action: Converted on 09/20/203 by NIAL CASTLE Linaclotide (Linzess) 290 Mcg Capsule, 290 MCG PO DAILY07 for IRRITABLE BOWEL, (Reported) Entered as Reported by: ANIL HALL on 09/20/20 1217 Last Taken: Unknown Dose on 09/19/20 Last Action: Converted on 09/20/203 by NIAL CASTLE Losartan Potassium (Cozaar ) 50 Mg Tablet, 50 MG PO HS, (Reported) Entered as Reported by: KATH MONTES on 04/05/17725 Last Action: Continued on 09/20/20 1223 by NIAL CASTLE Magnesium Oxide (Magnesium) 400 Mg Capsule, 1,000 MG PO DAILY, (Reported) Entered as Reported by: KATH MONTES on 04/05/17725 Last Action: Converted on 09/20/201222 by NIAL CASTLE Metformin Hcl (Metformin Hcl) 500 Mg Tablet, 500 MG PO BIDWMEALS for ANTI- DIABETIC, Ref 0 (Reported) Entered as Reported by: ANIL HALL on 09/20/201216 Last Taken: Unknown Dose on 09/19/20 Last Action: Continued on 09/20/201222 by NIAL CASTLE Methylnaltrexone [place] (Relistor) 150 Mg Tablet, 150 MG PO BID for consti pation, (Reported) Entered as Reported by: ANIL HALL on 09/20/201216 Last Taken: Unknown Dose on 09/19/20 Last Action: Converted on 09/20/201222 by NIAL CASTLE Metoprolol Succinate (Metoprolol Succinate ( Xl )) 25 Mg Tab.er.24h, 1 TAB PO DAILY, #30 Ref 5 (Reported) Entered as Reported by: JOSÉ MIGUEL KAPOOR on 04/08/171316 Last Action: Continued on 09/20/201222 by NIAL CASTLE Mycophenolate Mofetil (Cellcept) 500 Mg Tablet, 1 TAB PO BID, #180 Ref 3 (Reported) Entered as Reported by: KATH MONTES on 04/05/17725 Last Action: Converted on 09/20/201222 by NIAL CASTLE Omeprazole (Omeprazole) 40 Mg Capsule.dr, 1 CAP PO DAILY for ppi, #30 Ref 3 (Reported) Entered as Reported by: ANIL HALL on 09/20/201216 Last Taken: Unknown Dose on 09/19/20 Last Action: Converted on 09/20/201222 by NIAL CASTLE Prasugrel Hcl (Effient) 10 Mg Tablet, 1 TAB PO DAILY, #90 Ref 1 (Reported) Entered as Reported by: JOSÉ MIGUEL KAPOOR on 04/08/171316 Last Taken: Unknown Dose on 09/19/20 Last Action: Continued on 09/20/201222 by NIAL CASTLE Sitagliptin Phosphate (Januvia) 50 Mg Tablet, 1 TAB PO DAILY for dm, #30 Ref 5 (Reported) Entered as Reported by: ANIL HALL on 2/27/21 1217 Last Taken: Unknown Dose on 09/19/20 Last Action: Converted on 09/20/203 by GULSHAN MAYNARD Tacrolimus (Prograf) 1 Mg Capsule, 2 CAP PO BID, #360 Ref 3 (Reported) Entered as Reported by: KATH MONTES on 04/05/17725 Last Taken: Unknown Dose on 09/19/20 Last Action: Converted on 09/20/201222 by GULSHAN MAYNARD Scheduled PRN Linaclotide (Linzess) 145 Mcg Capsule, 145 MCG PO BID PRN for CONSTIPATION, (Reported) Entered as Reported by: KATH MONTES on 04/05/17725 Last Action: Converted on 09/20/201222 by GULSHAN MAYNARD Oxycodone/Apap 7.5-325 (Percocet 7.5-325 Mg Tablet ) 1 Each Tablet, 1 TAB PO PRN Q6HRS PRN for PAIN, Ref 0 (Reported) Entered as Reported by: KATH MONTES on 04/05/17725 Last Action: Continued on 09/20/203 by GULSHAN MAYNARD Temazepam (Temazepam) 15 Mg Capsule, 15 MG PO HS PRN for INSOMNIA, (Reported) Entered as Reported by: KATH MONTES on 04/05/17725 Last Action: Continued on 09/20/201222 by GULSHAN MAYNARD Discontinued Medications Oxycodone Hcl (Oxycodone Hcl Immed.release) 10 Mg Tablet, 1 PO PRN Q4HRS PRN for PAIN, (Reported) Entered as Reported by: ANIL HALL on 09/20/20 1014 Last Taken: Unknown Dose on 09/19/20 Last Action: New Order on 09/20/20 1014 by ANIL HALL Patient Instructions Patient Instructions > 30 min face to face eval, Justicifation of Admission Dx: Justifications for Admission: Justification of Admission Dx: Yes (pna) TOM MATHEW MD Sep 22, 2020 11:53
--- NOTE | 2020-09-22 12:00 | NUR ---
Discharge Note: CLIVE NUNEZ Discharge instructions and discharge home medications reviewed with Patient and a copy given. All questions have been answered and understanding verbalized. The following instructions and handouts were given: d/c instructions Discontinued lines and drains: Peripheral IV intact. Patient discharged to Home or Self Care with Spouse via Wheelchair
--- NOTE | 2020-09-22 12:45 | PDOC ---
CARDIO Progress Notes Date and Time Date of Service 09/22/20 Time of Evaluation 1205 Subjective Subjective: No Chest Pain, No Palpitations, No Dizziness, Other (breathing improved ) Vitals Vitals Vital Signs Date Time Temp Pulse Resp B/P (MAP) Pulse Ox O2 Delivery O2 Flow Rate FiO2 09/22/20 11:00 98.6 88 18 132/58 (82) 95 Room Air 98.6 09/22/20 08:00 3.0 Weight Weight [ ] Input and Output Intake and Output Intake and Output 09/22/20 07:00 Intake Total 600 ml Balance 600 ml Intake Oral 600 ml # Voids 4 Microbiology Micro Microbiology 09/20/20 Urine Culture - Final, Complete Physical Exam HEENT: Neck Supple W Full Motion Chest: Symmetric LUNGS: Other (diminished bases) Heart: RRR Abdomen: Soft N/T Extremities: No Edema Neurology: alert, oriented, follow commands Assessment Assessment 1. Acute respiratory failure with a/c CHF and probable PNA. 2. Leukocytosis, fevers. 3. NSTEMI; trop peak 1.1. Possibly type II non-STEMI/demand ischemia in setting of above 4. CAD s/p PCI/JOSE to LMCA/LAD/LCx with Impella hemodynamic support 03/2017. 5. Severe aortic stenosis s/p TAVR. Echo 06/2019 with normally functioning bioprosthetic AVR with LVEF 50 to 55%. 6. Hypertension; controlled 7. Hyperlipidemia; statin therapy 8. Diabetes, II Recommendations Secondary prevention measures including ASA/Effient Outpatient echo to assess LV systolic functions, aortic valve Plan for outpatient ischemic evaluation Follow up in our office with Dr. Louise as scheduled. Justicifation of Admission Dx: Justifications for Admission: Justification of Admission Dx: Yes (pna) AMIE BAZAN APRN Sep 22, 2020 12:45
--- NOTE | 2020-09-22 14:01 | NUR ---
SW following for discharge planning. Spoke with RN and reviewed chart. Pt to discharged home today, self-care. Pt on room air and oral medications. No further SW needs at this time.
== END 2020-09-22 13:05 | disposition home or self-care (01) | DRG 871 ==
LOC: ER 04:51 → 6 SOUTH 06:05
PROVIDERS: ADMIT Family Medicine; ATTEND Family Medicine
DX: A41.9 Sepsis, unspecified organism (principal); J96.00 Acute respiratory failure, unspecified whether with hypoxia or hypercapnia; I21.A1 Myocardial infarction type 2; J12.9 Viral pneumonia, unspecified; I50.43 Acute on chronic combined systolic (congestive) and diastolic (congestive) heart failure; J44.0 Chronic obstructive pulmonary disease with (acute) lower respiratory infection; Z94.0 Kidney transplant status; Z94.83 Pancreas transplant status; I11.0 Hypertensive heart disease with heart failure; I25.10 Atherosclerotic heart disease of native coronary artery without angina pectoris; Z95.5 Presence of coronary angioplasty implant and graft; E66.9 Obesity, unspecified; E78.5 Hyperlipidemia, unspecified; G47.33 Obstructive sleep apnea (adult) (pediatric); H54.7 Unspecified visual loss; I35.0 Nonrheumatic aortic (valve) stenosis; Z79.4 Long term (current) use of insulin; Z83.3 Family history of diabetes mellitus; Z95.3 Presence of xenogenic heart valve; Z96.649 Presence of unspecified artificial hip joint; Z96.659 Presence of unspecified artificial knee joint; Z20.822 Contact with and (suspected) exposure to COVID-19; Z98.51 Tubal ligation status; Z90.49 Acquired absence of other specified parts of digestive tract; E11.9 Type 2 diabetes mellitus without complications; Z68.23 Body mass index [BMI] 23.0-23.9, adult
CPT/HCPCS: 36415; 71045; 80053; 81001; 83605; 83880; 84484; 85007; 85025; 87086; 93005; 96361; 96365; 96375; J0456; J0696; J1100; J1650; J7030; J7507; J7517; U0003; 99285-25; G0378